=== PATIENT | male | born 1995 | race Caucasian/White ===

== ENCOUNTER → 2020-08-17 08:25 | Outpatient (BNVA) | payer BC, MEDICAID, SELFPAY | PROVIDERS: Family Provider Nurse Practitioner Family; Referring Provider Nurse Practitioner Family; Visit Provider Specialist | DX: F43.12 Post-traumatic stress disorder, chronic (principal); F33.2 Major depressive disorder, recurrent severe without psychotic features; F41.1 Generalized anxiety disorder; F17.200 Nicotine dependence, unspecified, uncomplicated; F12.20 Cannabis dependence, uncomplicated | CPT/HCPCS: 99204; 73140 ==

== ENCOUNTER → 2020-11-02 09:32 | Outpatient (BNVA) | payer BC, SELFPAY | PROVIDERS: Family Provider Nurse Practitioner Family; Visit Provider Nurse Practitioner Family | DX: R50.9 Fever, unspecified (principal); Z20.822 Contact with and (suspected) exposure to COVID-19 | CPT/HCPCS: 87635 ==

== ENCOUNTER 2021-01-19 12:33 | Outpatient (CLI) | payer BC, MEDICAID, SELFPAY ==
--- NOTE | 2021-01-19 13:30 | US_ITS ---
WS: [id number] ULTRASOUND ABDOMEN LIMITED CLINICAL INFORMATION: R10.9 - Unspecified abdominal pain COMPARISON: None. FINDINGS: Appendix is not visualized due to bowel gas. Bowel gas is seen within the right lower quadr ant. Gallbladder Normal. Gallstones: None. Gallbladder sludge: None. Gallbladder wall thickening: None. Pericholecystic fluid: None. Sonographic Cuellar sign: Absent. US/US appendix [id number] IMPRESSION: 1. Appendix not visualized in the right lower quadrant due to bowel gas. 2. Normal gallbladder.
== END 2021-01-19 12:34 | disposition home or self-care (01) ==
LOC: RAD 12:38
PROVIDERS: PCP Nurse Practitioner Family; Visit Provider Nurse Practitioner Family
DX: R10.9 Unspecified abdominal pain (principal)
CPT/HCPCS: 76705

== ENCOUNTER → 2021-01-22 16:34 | Outpatient (BNVA) | payer BC, MEDICAID, SELFPAY | PROVIDERS: PCP Nurse Practitioner Family; Visit Provider Nurse Practitioner Family | DX: R10.9 Unspecified abdominal pain (principal); K59.00 Constipation, unspecified | CPT/HCPCS: 81000 ==

== ENCOUNTER 2021-02-10 21:03 | Emergency (ER) | payer BC, MEDICAID, SELFPAY ==
[2021-02-10] VITALS (26 sets, daily range): BP systolic 103–133; BP diastolic 61–79; PULSE 64–71; RESP 16–18; TEMP 36.7; O2SAT 94–98; BMI 40.3
--- NOTE | 2021-02-10 21:47 | CTR_ITS ---
PROCEDURE INFORMATION: Exam: CT Abdomen And Pelvis With Contrast Exam date and time: 02/10/2021 9:47 PM Age: 25 years old Clinical indication: Abdominal pain; Localized; Right lower quadrant (rlq); Patient HX: C/O rlq abd pain TECHNIQUE: Imaging protocol: Computed tomography of the abdomen and pelvis with contrast. Radiation optimization: All CT scans at this facility use at least one of these dose optimization techniques: automated exposure control; mA and/or kV adjustment per patient size (includes targeted exams where dose is matched to clinical indication); or iterative reconstruction. Contrast material: OMNI 300; Contrast volume: 95 ml; Contrast route: INTRAVENOUS (IV); COMPARISON: [place] appendix [id number] 01/19/2021 1:01 PM RADIATION DOSE METRICS: Total DLP (mGy-cm): 1733.63 FINDINGS: Liver: Normal. No mass. Gallbladder and bile ducts: Normal. No calcified stones. No ductal dilation. Pancreas: Normal. No ductal dilation. Spleen: Calcifications are seen within the spleen compatible with calcified granulomas. Adrenal glands: Normal. No mass. Kidneys and ureters: Normal. No hydronephrosis. Stomach and bowel: Unremarkable. No obstruction. No mucosal thickening. Appendix: The appendix is visualized and is normal in configuration. Intraperitoneal space: Unremarkable. No free air. No significant fluid collection. Vasculature: Unremarkable. No abdominal aortic aneurysm. Lymph nodes: Unremarkable. No enlarged lymph nodes. Urinary bladder: Unremarkable as visualized. Reproductive: Unremarkable as visualized. Bones/joints: Unremarkable. No acute fracture. Soft tissues: Unremarkable. CT/CT abdomen pelvis w con* [id number] IMPRESSION: There are no acute abdominal findings. Radiation Dose CTDIVOL = (mGy): DLP = 1733.63 (mGy-cm)
--- NOTE | 2021-02-10 21:56 | W.ED.ABDPA2 ---
HPI - Abdominal Pain General: Chief Complaint: Abdominal Pain Stated Complaint: Sever ABD Pain Time Seen by Provider: 02/10/21 21:33 Source: patient Mode of arrival: ambulatory Limitations: no limitations History of Present Illness: HPI narrative: 25-year-old male states he been having right lower quadrant pain over the last 2 weeks has gotten much worse over the last 2 days. He states he was originally constipated but is taken medicines for that and is no longer constipated but his pain is worsened. He states he saw his provider he was concerned it was appendicitis was actually scheduled for a CT yesterday but did not show up. He has had some nausea and vomiting. Denies any fevers. Denies any worsening proving factors. States his pain is an 8 out of 10 currently. MD elicited complaint: abdominal pain Associated Symptoms: Reports GI cramping, nausea and vomiting; Denies chills, dysuria and fever(s) Review of Systems Const: Denies: fever(s), chills, body aches or change in appetite Eyes: Denies: blurry vision or eye discomfort ENMT: Denies: throat pain or dental pain Card: Denies: chest pain Resp: Denies: dyspnea GI: Reports: abdominal pain, nausea, vomiting and GI cramping : Denies: dysuria Musc: Denies: neck pain or back pain Skin/Breast: Denies: rash Neuro: Denies: headache(s) Psych: Denies: depression Dar/Lymph: Denies: easy bruising All/Imm: Denies: urticaria PFSH ED PFSH: Medical History Generalized anxiety disorder Major depressive disorder, recurrent severe without psychotic features Surgical History History of rotator cuff surgery History of tonsillectomy and adenoidectomy S/P excision of ganglion cyst Family History Mother Diabetes Grandfather Diabetes Social History Quit status (tobacco): has tried quititng Number of times tried to quit tobacco: 4 Second hand smoke exposure: Yes Alcohol intake: never Adopted: No Caregiver/support person: No Lives independently: No Household members: spouse and children Current occupational status: employed History of recent travel: No Sexually active: Yes Current gender identity: Male Physical Exam Const: COMMON NORMALS: no acute distress, patient oriented x3 and healthy appearing HENMT: COMMON NORMALS: normocephalic and atraumatic HEAD & SCALP: normocephalic and atraumatic Eye: COMMON NORMALS: Equal, round and reactive pupils present and EOMs intact bilaterally PUPIL: Yes Equal, round and reactive pupils present Neck/C-Spine: COMMON NORMALS: full ROM and supple Chest: COMMONS NORMALS: normal inspection of the chest and normal palpation of entire chest wall Resp: COMMON NORMALS: normal respiratory effort, No retractions, No use of accessory muscles and clear to auscultation bilaterally AUSCULTATION: clear to auscultation bilaterally Cardio: COMMON NORMALS: regular rate, regular rhythm and No murmurs present (Cardio) RATE: regular rate RHYTHM: regular rhythm GI: COMMON NORMALS: Normal to inspection, nondistended, normoactive bowel sounds present, Soft to palpation, non-tender and no masses PALPATION: Yes Soft to palpation and Yes Tenderness to palpation present (GI) Details: RLQ Extremity: COMMON NORMALS: normal to inspection and full ROM Neuro: COMMON NORMALS: patient oriented x3, moves all extremities and no focal motor deficits Psych: COMMON NORMALS: mental status grossly normal, Normal thought process present and cooperative THOUGHT PROCESS: Normal thought process present Skin: COMMON NORMALS: no rashes or lesions noted and no wounds GENERAL SKIN EXAM: no rashes or lesions noted Course Vital Signs: Vital signs: Vital Signs Temperature 98.1 F 02/10/21 21:14 Pulse Rate 64 02/10/21 22:16 Respiratory Rate 16 02/10/21 22:16 Blood Pressure 107/66 02/11/21 00:05 Pulse Oximetry 95 02/11/21 00:05 MDM - Abdominal Pain MDM Narrative: Medical decision making narrative: Patient presents here with abdominal pain. Patient's blood work and CT abdomen here are both negative. We will treat him with pain meds and get him follow-up with surgery. He is return if worsening. He understands agrees to plan. Lab Data: Labs: Lab Results 02/10/21 02/10/21 02/10/21 22:00 22:00 22:00 WBC 11.6 10^3/uL H 10 ^3/uL (4.0-10.0) RBC 5.25 10^6/uL 10^6 /uL (4.1-5.3) Hgb 16.7 g/dL H g/dL (11.7-16.6) Hct 47.5 % % (42.0-52.0) MCV 90.5 fl fl (80-94) MCH 31.8 pg pg (28.0-34.0) MCHC 35.2 g/dL g/dL (30.0-36.0) RDW 12.6 % % (12.1-15.1) Plt Count 202 10^3/cmm 10^3 /cmm (130-400) MPV 12.1 fL H fL (7.4-10.4) Neut % (Auto) 60.7 % % Lymph % (Auto) 26.0 % % Runnels % (Auto) 8.0 % % Eos % (Auto) 4.6 % % Baso % (Auto) 0.4 % % Neut # (Auto) 7.03 10^3/uL 10^3 /uL (1.8-7.7) Lymph # (Auto) 3.0 10^3/uL 10^3/ uL (0.8-4.8) Runnels # (Auto) 0.9 10^3/uL 10^3/ uL (0.2-0.9) Eos # (Auto) 0.5 10^3/uL 10^3/ uL (0.0-0.8) Baso # (Auto) 0.1 10^3/uL 10^3/ uL (0.0-0.1) Nucleated RBC % (a uto) 0 % % Nucleated RBCs # 0.0 /100WBC /100W BC Sodium 140 mmol/L mmol/L (136-145) Potassium 4.3 mmol/L mmol/L (3.5-5.1) Chloride 105 mmol/L mmol/L (98-107) Carbon Dioxide 24 mmol/L mmol/L (22-29) Anion Gap 15.3 (5-19) BUN 11 mg/dL mg/dL (6-20) Creatinine 0.8 mg/dL mg/dL (0.7-1.2) GFR Calculation 116.9 mL/min mL/m in (90-130) Glucose 96 mg/dL mg/dL (65-115) Calculated Osmolal ity 289 mOsm/kg mOsm/ kg (285-295) Calcium 9.8 mg/dL mg/dL (8.5-10.5) Total Bilirubin 0.5 mg/dL mg/dL (0.15-1.2) AST 16 U/L U/L (0-40) ALT 17 U/L U/L (0-41) Alkaline Phosphata se 76 IU/L IU/L (40-130) Total Protein 7.3 g/dL g/dL (6.6-8.7) Albumin 4.7 g/dL g/dL (3.5-5.2) Globulin 2.6 g/dL g/dL (1.3-4.6) Lipase 33 U/L U/L (13-60) Urine Color Yellow (Yellow) Urine Appearance Clear (CLEAR) Urine pH 7 (5-7) Ur Specific Gravit y 1.015 (1.005-1.030) Urine Protein Neg (Negative) Urine Glucose (UA) Norm (Normal) Urine Ketones Negative (Negative) Urine Blood Neg (Negative) Urine Nitrate Negative (Negative) Urine Bilirubin Neg (Negative) Urine Urobilinogen 4 mg/dL H mg/dL (Negative) Ur Leukocyte Nehal ase Negative (Negative) Imaging Data ^: CT Abd/Pel: Attestation: I personally reviewed and interpreted this imaging study as follows: Radiologist's impression: [address] [address] [address] Scan Report Signed Patient: Sean Anderson Unit #: [id number] : 1995 Age/Sex: 25 / M ADM Date: 02/10/21 Loc: ER Room/Bed: Attending Dr: Ordering Provider/Ordering MD: Shira Herndon MD Date of Service: 02/10/21 Procedure(s): CT abdomen pelvis w con* [id number] Accession Number(s): [id number] Report Number: [id number] PROCEDURE INFORMATION: Exam: CT Abdomen And Pelvis With Contrast Exam date and time: 02/10/2021 9:47 PM Age: 25 years old Clinical indication: Abdominal pain; Localized; Right lower quadrant (rlq); Patient HX: C/O rlq abd pain TECHNIQUE: Imaging protocol: Computed tomography of the abdomen and pelvis with contrast. Radiation optimization: All CT scans at this facility use at least one of these dose optimization techniques: automated exposure control; mA and/or kV adjustment per patient size (includes targeted exams where dose is matched to clinical indication); or iterative reconstruction. Contrast material: OMNI 300; Contrast volume: 95 ml; Contrast route: INTRAVENOUS (IV); COMPARISON: [place] appendix [id number] 01/19/2021 1:01 PM RADIATION DOSE METRICS: Total DLP (mGy-cm): 1733.63 FINDINGS: Liver: Normal. No mass. Gallbladder and bile ducts: Normal. No calcified stones. No ductal dilation. Pancreas: Normal. No ductal dilation. Spleen: Calcifications are seen within the spleen compatible with calcified granulomas. Adrenal glands: Normal. No mass. Kidneys and ureters: Normal. No hydronephrosis. Stomach and bowel: Unremarkable. No obstruction. No mucosal thickening. Appendix: The appendix is visualized and is normal in configuration. Intraperitoneal space: Unremarkable. No free air. No significant fluid collection. Vasculature: Unremarkable. No abdominal aortic aneurysm. Lymph nodes: Unremarkable. No enlarged lymph nodes. Urinary bladder: Unremarkable as visualized. Reproductive: Unremarkable as visualized. Bones/joints: Unremarkable. No acute fracture. Soft tissues: Unremarkable. CT/CT abdomen pelvis w con* [id number] IMPRESSION: There are no acute abdominal findings. Radiation Dose CTDIVOL = (mGy): DLP = 1733.63 (mGy-cm) Dictated By: Yang Moore MD Signed By: Yang Moore MD Signed Date/Time: 02/11/21 0006 DD/ 46 Discharge Plan Discharge Patient Disposition: Home Clinical Impression: RLQ abdominal pain Condition: Stable Prescriptions: New dicyclomine 20 mg tablet 20 mg PO TID PRN (Reason: pain) Qty: 20 RF: 0 ondansetron 4 mg tablet,disintegrating 4 mg PO Q6H PRN (Reason: nausea and vomiting) Qty: 14 RF: 0 No Action fluoxetine [Prozac] 20 mg capsule 20 mg PO DAILY Qty: 30 RF: 1 prazosin 5 mg capsule 5 mg PO .HS Qty: 30 RF: 1 ProAir RespiClick 90 mcg/actuation aerosol powdr breath activated 2 inh inhalation Q6H PRN (Reason: shortness of breath or wheezing) Qty: 1 RF: 0 ibuprofen 800 mg tablet 800 mg PO Q8H 10 Days Qty: 30 RF: 0 Discharge Orders: Discharge ED (Routine); Ordered 02/11/21 Ordered By: Shira Herndon Referrals: Pat Ramirez FNP [Primary Care Provider] - Jamie Evangelista MD [Physician] - 1-3 days Discharge Diet: Advance as tolerated Discharge Activity: Resume usual activity Patient Instructions: Abdominal Pain (ED) Coding Level of Care Code ED Platen Press Feeder for Chg Fwd Exam Comprehensive
[2021-02-10] MEDS: ondansetron 2 mg/ML SDV 2 mL 4 MG IVP (22:08)
[2021-02-10] MEDS: morphine 4 mg/mL SDV 1 mL IVP (22:08)
[2021-02-10] MEDS: sodium chloride 0.9% 1,000 ML 999 ML IV (22:08)
[2021-02-10 22:13] LABS: Basophils # 0.1 10^3/uL (0.0-0.1); Basophils % 0.4 %; Eosinophils # 0.5 10^3/uL (0.0-0.8); Eosinophils % 4.6 %; Hematocrit 47.5 % (42.0-52.0); Hemoglobin 16.7 g/dL (11.7-16.6); Mean Corpuscular HGB Conc 35.2 g/dL (30.0-36.0); Mean Corpuscular Hemoglobin 31.8 pg (28.0-34.0); Mean Corpuscular Volume 90.5 fl (80-94); Mean Platelet Volume 12.1 fL (7.4-10.4); Monocytes # 0.9 10^3/uL (0.2-0.9); Neutrophils # 7.03 10^3/uL (1.8-7.7); Neutrophils % 60.7 %; Nucleated Red Blood Cells % 0 %; Platelet Count 202 10^3/cmm (130-400); Red Blood Count 5.25 10^6/uL (4.1-5.3); Red Cell Distribution Width 12.6 % (12.1-15.1); White Blood Count 11.6 10^3/uL (4.0-10.0)
[2021-02-10 22:16] LABS: Add Urine Microscopic? NO; Charge for UA Resulting for Rev
[2021-02-10 22:24] LABS: Bilirubin Urine Neg (Negative); Blood Urine Neg (Negative); Glucose Urine UA Norm (Normal); Ketones Urine Negative (Negative); Leukocyte Esterase Urine Negative (Negative); Nitrate Urine Negative (Negative); Protein Urine Neg (Negative); Specific Gravity, Urine 1.015 (1.005-1.030); Urine Appearance Clear (CLEAR); Urine Color Yellow (Yellow); Urobilinogen Urine 4 mg/dL (Negative); pH Urine 7 (5-7)
[2021-02-10 22:40] LABS: Alanine Aminotransferase 17 U/L (0-41); Albumin Level 4.7 g/dL (3.5-5.2); Alkaline Phosphatase 76 IU/L (40-130); Anion Gap 15.3 (5-19); Aspartate Amino Transferase 16 U/L (0-40); Blood Urea Nitrogen 11 mg/dL (6-20); Calcium 9.8 mg/dL (8.5-10.5); Carbon Dioxide 24 mmol/L (22-29); Chloride 105 mmol/L (98-107); Globulin 2.6 g/dL (1.3-4.6); Glomerular Filtration Rate 116.9 mL/min (90-130); Glucose 96 mg/dL (65-115); Lipase 33 U/L (13-60); Osmolality Calculated 289 mOsm/kg (285-295); Potassium 4.3 mmol/L (3.5-5.1); Sodium 140 mmol/L (136-145); Total Bilirubin 0.5 mg/dL (0.15-1.2); Total Protein 7.3 g/dL (6.6-8.7)
[2021-02-10] MEDS: iohexol 300 mg/mL 100 mL Btl IV (22:59)
[2021-02-11] VITALS: BP 103/63; O2SAT 95
[2021-02-11 00:05] VITALS: BP 107/66; O2SAT 95
--- NOTE | 2021-02-12 15:22 | DCPLANNER ---
senior mechanical project manager had message to schedule a follow up appointment for patient with general surgery. senior mechanical project manager emailed patients information to Alison Ha and Daniela at [facility] General Surgery / ENT clinic. Patients information will be printed and reviewed. Clinic will call patient with appointment information.
--- NOTE | 2021-03-08 10:39 | DCPLANNER ---
Patient had a follow up appointment scheduled for 02.20.[address] Evangelista at general surgery - patient did attend appointment.
== END 2021-02-11 00:30 | disposition home or self-care (01) ==
PROVIDERS: Emergency Provider Emergency Medicine; PCP Nurse Practitioner Family
DX: R10.31 Right lower quadrant pain (principal); Z77.22 Contact with and (suspected) exposure to environmental tobacco smoke (acute) (chronic)
CPT/HCPCS: 74177; 80053; 81003; 83690; 85025; 96361; 96374; 96375; 99284; J2270; J2405; J7030; Q9967

== ENCOUNTER → 2021-02-28 15:24 | Outpatient (BNVA) | payer BC, MEDICAID, SELFPAY | PROVIDERS: PCP Nurse Practitioner Family; Visit Provider Psychiatry & Neurology Psychiatry | DX: F41.1 Generalized anxiety disorder (principal); F33.2 Major depressive disorder, recurrent severe without psychotic features | CPT/HCPCS: 99214 ==

== ENCOUNTER → 2021-03-19 13:46 | Outpatient (BNVA) | payer BC, SELFPAY | PROVIDERS: PCP Nurse Practitioner Family; Visit Provider Social Worker | DX: F43.12 Post-traumatic stress disorder, chronic (principal); F33.2 Major depressive disorder, recurrent severe without psychotic features | CPT/HCPCS: 90834 ==

== ENCOUNTER → 2021-04-12 07:41 | Outpatient (BNVA) | payer BC, SELFPAY | PROVIDERS: PCP Nurse Practitioner Family; Visit Provider Psychiatry & Neurology Psychiatry | DX: F41.1 Generalized anxiety disorder (principal); F33.2 Major depressive disorder, recurrent severe without psychotic features; F17.200 Nicotine dependence, unspecified, uncomplicated; F43.12 Post-traumatic stress disorder, chronic; F12.20 Cannabis dependence, uncomplicated | CPT/HCPCS: 99213 ==

== ENCOUNTER → 2021-05-10 09:09 | Outpatient (BNVA) | payer BC, SELFPAY | PROVIDERS: PCP Nurse Practitioner Family; Visit Provider Nurse Practitioner Family | DX: Z20.822 Contact with and (suspected) exposure to COVID-19 (principal); R05.9 Cough, unspecified | CPT/HCPCS: 87486; 87581; 87633 ==

== ENCOUNTER → 2021-05-24 11:23 | Outpatient (BNVA) | payer BC, SELFPAY | PROVIDERS: PCP Nurse Practitioner Family; Visit Provider Nurse Practitioner Family | DX: Z20.822 Contact with and (suspected) exposure to COVID-19 (principal); R50.9 Fever, unspecified | CPT/HCPCS: 87635 ==

== ENCOUNTER → 2021-07-05 07:36 | Outpatient (BNVA) | payer BC, SELFPAY | PROVIDERS: PCP Nurse Practitioner Family; Visit Provider Psychiatry & Neurology Psychiatry | DX: F41.1 Generalized anxiety disorder (principal); F33.2 Major depressive disorder, recurrent severe without psychotic features; F12.20 Cannabis dependence, uncomplicated; F43.12 Post-traumatic stress disorder, chronic; F17.200 Nicotine dependence, unspecified, uncomplicated | CPT/HCPCS: 99213 ==

== ENCOUNTER 2021-07-16 15:41 | Emergency (ER) | payer BC, MEDICAID, SELFPAY ==
[2021-07-16 15:46] VITALS: BP 148/95; PULSE 61; RESP 16; TEMP 36.6; O2SAT 98; BMI 40.3
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
[2021-07-16 17:00] VITALS: RESP 16
[2021-07-16] MEDS: morphine 4 mg/mL SDV 1 mL IVP (17:00)
[2021-07-16] MEDS: ondansetron 2 mg/ML SDV 2 mL 4 MG IVP (17:00)
[2021-07-16 17:30] LABS: Blood Urea Nitrogen 7 mg/dL (6-20); Calcium 9.7 mg/dL (8.5-10.5); Carbon Dioxide 25 mmol/L (22-29); Chloride 103 mmol/L (98-107); Glomerular Filtration Rate 135.3 mL/min (90-130); Glucose 78 mg/dL (65-115); Osmolality Calculated 285 mOsm/kg (285-295); Sodium 139 mmol/L (136-145)
[2021-07-16 17:36] LABS: Basophils % 0.6 %; Eosinophils # 0.3 10^3/uL (0.0-0.8); Eosinophils % 4.6 %; Hematocrit 43.6 % (42.0-52.0); Hemoglobin 15.5 g/dL (11.7-16.6); Lymphocytes # 3.2 10^3/uL (0.8-4.8); Lymphocytes % 46.9 %; Mean Corpuscular HGB Conc 35.6 g/dL (30.0-36.0); Mean Corpuscular Hemoglobin 31.6 pg (28.0-34.0); Mean Platelet Volume 11.6 fL (7.4-10.4); Monocytes # 0.8 10^3/uL (0.2-0.9); Monocytes % 11.5 %; Neutrophils # 2.49 10^3/uL (1.8-7.7); Neutrophils % 36.1 %; Nucleated Red Blood Cells % 0 %; Platelet Count 160 10^3/cmm (130-400); Red Cell Distribution Width 12.7 % (12.1-15.1); White Blood Count 6.9 10^3/uL (4.0-10.0)
[2021-07-16 17:41] LABS: Anion Gap 15.2 (5-19); Potassium 4.2 mmol/L (3.5-5.1)
[2021-07-16 18:35] VITALS: BP 152/95; PULSE 67; RESP 16; O2SAT 96
== END 2021-07-16 18:36 | disposition home or self-care (01) ==
PROVIDERS: Family Medicine; Emergency Provider Emergency Medicine; PCP Nurse Practitioner Family
DX: I86.1 Scrotal varices (principal); Z77.22 Contact with and (suspected) exposure to environmental tobacco smoke (acute) (chronic)
CPT/HCPCS: 36415; 76870; 80048; 85025; 96374; 96375; 99283; J2270; J2405

== ENCOUNTER 2021-08-30 09:08 | Emergency (ER) | payer BC, MEDICAID, SELFPAY ==
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
[2021-08-30 09:43] VITALS: BP 129/80; PULSE 69; RESP 18; TEMP 36.6; O2SAT 97; BMI 41.9
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
[2021-08-30 10:33] LABS: Basophils % 0.4 %; Eosinophils # 0.1 10^3/uL (0.0-0.8); Eosinophils % 1.1 %; Hematocrit 46.1 % (42.0-52.0); Hemoglobin 15.7 g/dL (11.7-16.6); Lymphocytes # 1.8 10^3/uL (0.8-4.8); Lymphocytes % 17.3 %; Mean Corpuscular HGB Conc 34.1 g/dL (30.0-36.0); Mean Corpuscular Hemoglobin 30.6 pg (28.0-34.0); Mean Corpuscular Volume 89.9 fl (80-94); Mean Platelet Volume 11.2 fL (7.4-10.4); Monocytes # 0.7 10^3/uL (0.2-0.9); Monocytes % 6.8 %; Neutrophils # 7.83 10^3/uL (1.8-7.7); Neutrophils % 73.9 %; Nucleated Red Blood Cells % 0 %; Platelet Count 234 10^3/cmm (130-400); Red Blood Count 5.13 10^6/uL (4.1-5.3); Red Cell Distribution Width 12.9 % (12.1-15.1); White Blood Count 10.6 10^3/uL (4.0-10.0)
[2021-08-30 10:43] LABS: Alanine Aminotransferase 42 U/L (0-41); Albumin Level 4.5 g/dL (3.5-5.2); Alkaline Phosphatase 81 IU/L (40-130); Anion Gap 14.9 (5-19); Aspartate Amino Transferase 26 U/L (0-40); Blood Urea Nitrogen 9 mg/dL (6-20); Calcium 9.8 mg/dL (8.5-10.5); Carbon Dioxide 24 mmol/L (22-29); Chloride 104 mmol/L (98-107); Creatinine Clr Calc Pharmacy 167.6433; Globulin 2.4 g/dL (1.3-4.6); Glucose 121 mg/dL (65-115); Osmolality Calculated 288 mOsm/kg (285-295); Potassium 3.9 mmol/L (3.5-5.1); Sodium 139 mmol/L (136-145); Total Bilirubin 0.3 mg/dL (0.15-1.2); Total Protein 6.9 g/dL (6.6-8.7)
[2021-08-30 11:42] LABS: Add Urine Microscopic? NO; Charge for UA Resulting for Rev
[2021-08-30] MEDS: tetanus-dipt-pertussis 0.5 mL SDV IM (11:49)
[2021-08-30 11:50] LABS: Urine Appearance Clear (CLEAR); Urine Color Yellow (Yellow)
[2021-08-30 11:51] LABS: Bilirubin Urine Neg (Negative); Blood Urine Neg (Negative); Glucose Urine UA Norm (Normal); Ketones Urine Negative (Negative); Leukocyte Esterase Urine Negative (Negative); Nitrate Urine Negative (Negative); Protein Urine Neg (Negative); Specific Gravity, Urine 1.005 (1.005-1.030); Urobilinogen Urine Neg (Negative); pH Urine 7 (5-7)
[2021-08-30 12:02] VITALS: BP 163/104; PULSE 70; RESP 18; O2SAT 97
== END 2021-08-30 12:02 | disposition home or self-care (01) ==
PROVIDERS: Emergency Provider Family Medicine; PCP Nurse Practitioner Family
DX: S80.811A Abrasion, right lower leg, initial encounter (principal); V89.2XXA Person injured in unspecified motor-vehicle accident, traffic, initial encounter; M54.2 Cervicalgia
CPT/HCPCS: 70450; 72040; 73590; 80053; 81003; 85025; 90471; 90715; 99284

== ENCOUNTER 2022-02-18 15:44 | Emergency (ER) | payer BC, MEDICAID, SELFPAY ==
[2022-02-18 17:18] VITALS: BMI 41.9
[2022-02-18 17:21] VITALS: BP 143/93; PULSE 79; RESP 18; TEMP 36.6; O2SAT 98
[2022-02-18 18:52] LABS: Basophils % 0.4 %; Eosinophils # 0.4 10^3/uL (0.0-0.8); Eosinophils % 3.7 %; Hemoglobin 17.6 g/dL (11.7-16.6); Lymphocytes # 3.8 10^3/uL (0.8-4.8); Lymphocytes % 40.5 %; Mean Corpuscular HGB Conc 34.5 g/dL (30.0-36.0); Mean Corpuscular Hemoglobin 30.9 pg (28.0-34.0); Mean Corpuscular Volume 89.5 fl (80-94); Mean Platelet Volume 11.6 fL (7.4-10.4); Monocytes # 0.8 10^3/uL (0.2-0.9); Neutrophils # 4.43 10^3/uL (1.8-7.7); Neutrophils % 47.2 %; Nucleated Red Blood Cells % 0 %; Platelet Count 186 10^3/cmm (130-400); Red Cell Distribution Width 12.7 % (12.1-15.1); White Blood Count 9.4 10^3/uL (4.0-10.0)
[2022-02-18 19:17] LABS: Alanine Aminotransferase 26 U/L (0-41); Albumin Level 4.1 g/dL (3.5-5.2); Alkaline Phosphatase 73 U/L (40-130); Anion Gap 16.1 (5-19); Aspartate Amino Transferase 24 U/L (0-40); Blood Urea Nitrogen 10 mg/dL (6-20); Calcium 9.7 mg/dL (8.5-10.5); Carbon Dioxide 19 mmol/L (22-29); Chloride 99 mmol/L (98-107); Creatinine Clr Calc Pharmacy 167.6433; Globulin 3.3 g/dL (1.3-4.6); Glucose 82 mg/dL (65-115); Lipase 24 U/L (13-60); Osmolality Calculated 268 mOsm/kg (285-295); Potassium 4.1 mmol/L (3.5-5.1); Sodium 130 mmol/L (136-145); Total Bilirubin 0.3 mg/dL (0.15-1.2); Total Protein 7.4 g/dL (6.6-8.7)
--- NOTE | 2022-02-18 19:17 | XRR_ITS ---
PROCEDURE INFORMATION: Exam: XR Abdomen Exam date and time: 02/18/2022 7:24 PM Age: 26 years old Clinical indication: Abdominal pain; Additional info: Abd pain TECHNIQUE: Imaging protocol: Radiologic exam of the abdomen. Views: Frontal supine view of the abdomen. 1 View. COMPARISON: CT abdomen pelvis w con* [id number] 02/10/2021 10:57 PM FINDINGS: Gastrointestinal tract: Normal. No bowel dilation. Bones/joints: Unremarkable. XR/XR KUB [id number] IMPRESSION: No acute findings.
--- NOTE | 2022-02-18 19:17 | ED_ITS ---
HPI - Abdominal Pain General: Chief Complaint: Abdominal Pain Stated Complaint: Possible hernia Time Seen by Provider: 02/18/22 19:17 History of Present Illness: 26-year-old male patient comes in today with complaints of epigastric pain. Patient has been seen by primary care and светлана faulkner with a hiatal hernia and was written a prescription for esomeprazole but has yet to start the medication. Patient comes in tonight due to increased discomfort in the epigastric region along with dyspepsia. Patient appears nontoxic. Patient appears in mild to moderate pain. Associated Symptoms: Denies fever(s) Review of Systems Const: Denies: fever(s) Card: Denies: chest pain Resp: Denies: dyspnea GI: Reports: abdominal pain PFSH ED PFSH: Medical History Generalized anxiety disorder Major depressive disorder, recurrent severe without psychotic features Psychiatric care Surgical History History of rotator cuff surgery History of tonsillectomy and adenoidectomy S/P excision of ganglion cyst Family History Mother Diabetes Grandfather Diabetes Social History Smoking and tobacco status: current every day smoker cigarettes Packs smoked per day: 1 Years cigarettes smoked: 8 Quit status (tobacco): has tried quititng Number of times tried to quit tobacco: 4 Second hand smoke exposure: Yes Alcohol intake: never Adopted: No Caregiver/support person: No Lives independently: No Household members: spouse and children Current occupational status: employed History of recent travel: No Sexually active: Yes Current gender identity: Male Physical Exam Const: COMMON NORMALS: alert HENMT: COMMON NORMALS: normocephalic HEAD & SCALP: normocephalic Neck/C-Spine: COMMON NORMALS: full ROM Resp: COMMON NORMALS: normal respiratory effort and clear to auscultation bilaterally AUSCULTATION: clear to auscultation bilaterally Cardio: COMMON NORMALS: regular rate and regular rhythm RATE: regular rate RHYTHM: regular rhythm GI: COMMON NORMALS: Soft to palpation INSPECTION: Yes normal to inspection and Yes other (No abdominal hernia noted) AUSCULTATION: Yes normoactive bowel sounds PALPATION: Yes Soft to palpation and Yes Tenderness to palpation present (GI) (Midepigastric) : COMMON NORMALS: Yes no CVA tenderness BLADDER/KIDNEY EXAM: Yes no CVA tenderness Back/Pelvis: COMMON NORMALS: no CVA tenderness Neuro: SENSORIUM/ORIENTATION: Yes alert Skin: COMMON NORMALS: turgor normal GENERAL SKIN EXAM: turgor normal Course Vital Signs: Vital signs: Vital Signs Temperature 97.8 F 02/18/22 17:21 Pulse Rate 79 02/18/22 17:21 Respiratory Rate 18 02/18/22 17:21 Blood Pressure 143/93 02/18/22 17:21 Pulse Oximetry 98 02/18/22 17:21 Oxygen Delivery Me thod 02/18/22 17:21 MDM - Abdominal Pain Medical Decision Making 26-year-old male patient comes in today with complaints of epigastric discomfort and nausea. Patient has a history of gastroesophageal reflux disorder and prob able hiatal hernia. On exam lungs were clear to auscultation. Patient had some tenderness in the upper mid epigastrium. Bowel sounds are present. Skin was warm and dry. Differential diagnosis includes but not limited to gallbladder disease, GERD, hiatal hernia, bowel obstruction. KUB noted no abnormalities or signs of bowel obstruction. CBC and CMP were unremarkable. Lipase was unremarkable. Believe patient most probably has an exacerbation of his GERD he was given a dose of GI cocktail with some improvement. And 1 hydrocodone tablet for pain. Patient should continue with his routine medications and care. I added Reglan 1 tablet before meals and at bedtime for improved relief of reflux. Patient reported understanding and agreed to plan. Lab Data : 02/18/22 18:45 02/18/22 18:45 Labs/Radiology: Laboratory Results WBC 9.4 10^3/uL (4.0-10.0) 02/18/22 18:45 RBC 5.70 10^6/uL (4.1-5.3) H 02/18/22 18:45 Hgb 17.6 g/dL (11.7-16.6) H 02/18/22 18:45 Hct 51.0 % (42.0-52.0) 02/18/22 18:45 MCV 89.5 fl (80-94) 02/18/22 18:45 MCH 30.9 pg (28.0-34.0) 02/18/22 18:45 MCHC 34.5 g/dL (30.0-36.0) 02/18/22 18:45 RDW 12.7 % (12.1-15.1) 02/18/22 18:45 Plt Count 186 10^3/cmm (130-400) 02/18/22 18:45 MPV 11.6 fL (7.4-10.4) H 02/18/22 18:45 Neut % (Auto) 47.2 % 02/18/22 18:45 Lymph % (Auto) 40.5 % 02/18/22 18:45 [place] % (Auto) 8.0 % 02/18/22 18:45 Eos % (Auto) 3.7 % 02/18/22 18:45 Baso % (Auto) 0.4 % 02/18/22 18:45 Neut # (Auto) 4.43 10^3/uL (1.8-7.7) 02/18/22 18:45 Lymph # (Auto) 3.8 10^3/uL (0.8-4.8) 02/18/22 18:45 [place] # (Auto) 0.8 10^3/uL (0.2-0.9) 02/18/22 18:45 Eos # (Auto) 0.4 10^3/uL (0.0-0.8) 02/18/22 18:45 Baso # (Auto) 0.0 10^3/uL (0.0-0.1) 02/18/22 18:45 Nucleated RBC % (auto) 0 % 02/18/22 18:45 Nucleated RBCs # 0.0 /100WBC 02/18/22 18:45 Sodium 130 mmol/L (136-145) L 02/18/22 18:45 Potassium 4.1 mmol/L (3.5-5.1) 02/18/22 18:45 Chloride 99 mmol/L (98-107) 02/18/22 18:45 Carbon Dioxide 19 mmol/L (22-29) L 02/18/22 18:45 Anion Gap 16.1 (5-19) 02/18/22 18:45 BUN 10 mg/dL (6-20) 02/18/22 18:45 Creatinine 0.8 mg/dL (0.7-1.2) 02/18/22 18:45 GFR Calculation 116.0 mL/min (90-130) 02/18/22 18:45 Glucose 82 mg/dL (65-115) 02/18/22 18:45 Calculated Osmolality 268 mOsm/kg (285-295) L 02/18/22 18:45 Calcium 9.7 mg/dL (8.5-10.5) 02/18/22 18:45 Total Bilirubin 0.3 mg/dL (0.15-1.2) 02/18/22 18:45 AST 24 U/L (0-40) 02/18/22 18:45 ALT 26 U/L (0-41) 02/18/22 18:45 Alkaline Phosphatase 73 U/L (40-130) 02/18/22 18:45 Total Protein 7.4 g/dL (6.6-8.7) 02/18/22 18:45 Albumin 4.1 g/dL (3.5-5.2) 02/18/22 18:45 Globulin 3.3 g/dL (1.3-4.6) 02/18/22 18:45 Lipase 24 U/L (13-60) 02/18/22 18:45 Discharge Plan Discharge Patient Disposition: Home Clinical Impression: Hernia, hiatal Abdominal pain Qualifiers: Abdominal location: epigastric Qualified Code(s): R10.13 - Epigastric pain Condition: Stable Prescriptions: New Reglan 10 mg tablet 10 mg PO Q6H 7 Days Qty: 28 0RF hydrocodone-acetaminophen 5-325 mg tablet 1 tab PO Q8H PRN (Reason: pain (scale score 7-10)) Qty: 6 0RF No Action fluticasone propionate [Flovent HFA] 110 mcg/actuation HFA aerosol inhaler 2 puff inhalation BID Qty: 12 3RF esomeprazole magnesium [Nexium] 40 mg capsule,delayed release(DR/EC) 40 mg PO DAILY Qty: 30 2RF albuterol sulfate [ProAir HFA] 90 mcg/actuation HFA aerosol inhaler See Rx Instructions .ROUTE .COMPLEX Qty: 8.5 0RF Dose Instruction: INHALE 2 PUFFS BY MOUTH EVERY 6 HOURS NEEDED FOR SHORTNESS OF BREATH OR WHEEZING Rx Instructions: INHALE 2 PUFFS BY MOUTH EVERY 6 HOURS NEEDED FOR SHORTNESS OF BREATH OR WHEEZING Discharge Orders: Discharge ED (Routine); Ordered 02/18/22 Ordered By: Huy Del Toro Referrals: Campos Mcmullen FNP [Primary Care Provider] - Patient Instructions: Abdominal Pain (ED), Opioid Safety Activity Restrictions/Additional Instructions: Try taking Reglan, metoclopramide, 10 mg 30 minutes prior to each meal and 1 time at bedtime to see if it would improve your symptoms of abdominal pain. Use hydrocodone for severe pain. Follow-up with primary care regarding further juan m luation and treatment. Continue with plan for follow-up with GI or surgical services assistant. Stand Alone Forms: Work/School Release Coding Level of Care Code ED Catering Coordinator for Manish Hayden
[2022-02-18] MEDS: HYDROcodone-acetaminophen 5-325 mg Tablet 1 TAB PO (19:44)
[2022-02-18] MEDS: lidocaine 2% viscous 15 ML, aluminum-mag hydrox-simethicon 30 ML, sucralfate oral liq 1 GM PO (19:46)
== END 2022-02-18 20:07 | disposition home or self-care (01) ==
PROVIDERS: Emergency Medicine; Emergency Provider Nurse Practitioner Family; PCP Nurse Practitioner Family
DX: K44.9 Diaphragmatic hernia without obstruction or gangrene (principal); R10.13 Epigastric pain
CPT/HCPCS: 36415; 74018; 80053; 83690; 85025; 99284

== ENCOUNTER 2022-02-21 17:08 | Emergency (ER) | payer BC, MEDICAID, SELFPAY ==
[2022-02-21 17:11] VITALS: BP 148/93; PULSE 88; RESP 18; TEMP 36.5; O2SAT 98; BMI 43.5
[2022-02-21 17:37] LABS: Basophils % 0.5 %; Eosinophils # 0.2 10^3/uL (0.0-0.8); Eosinophils % 2.7 %; Hematocrit 46.4 % (42.0-52.0); Hemoglobin 16.7 g/dL (11.7-16.6); Lymphocytes # 3.1 10^3/uL (0.8-4.8); Lymphocytes % 38.2 %; Mean Corpuscular Volume 86.2 fl (80-94); Mean Platelet Volume 11.7 fL (7.4-10.4); Monocytes # 0.7 10^3/uL (0.2-0.9); Monocytes % 7.9 %; Neutrophils # 4.13 10^3/uL (1.8-7.7); Neutrophils % 50.3 %; Nucleated Red Blood Cells % 0 %; Platelet Count 213 10^3/cmm (130-400); Red Blood Count 5.38 10^6/uL (4.1-5.3); Red Cell Distribution Width 12.7 % (12.1-15.1); White Blood Count 8.2 10^3/uL (4.0-10.0)
[2022-02-21 17:42] LABS: Add Urine Microscopic? NO; Charge for UA Resulting for Rev
[2022-02-21 18:02] LABS: Alanine Aminotransferase 41 U/L (0-41); Albumin Level 4.3 g/dL (3.5-5.2); Alkaline Phosphatase 78 U/L (40-130); Anion Gap 15.9 (5-19); Aspartate Amino Transferase 24 U/L (0-40); Blood Urea Nitrogen 14 mg/dL (6-20); Calcium 9.6 mg/dL (8.5-10.5); Carbon Dioxide 21 mmol/L (22-29); Chloride 104 mmol/L (98-107); Creatinine Clr Calc Pharmacy 152.1803; Globulin 3.1 g/dL (1.3-4.6); Glomerular Filtration Rate 101.2 mL/min (90-130); Glucose 128 mg/dL (65-115); Osmolality Calculated 286 mOsm/kg (285-295); Potassium 3.9 mmol/L (3.5-5.1); Sodium 137 mmol/L (136-145); Total Bilirubin 0.2 mg/dL (0.15-1.2); Total Protein 7.4 g/dL (6.6-8.7)
[2022-02-21 18:10] LABS: Bilirubin Urine Neg (Negative); Blood Urine Neg (Negative); Glucose Urine UA Norm (Normal); Ketones Urine Negative (Negative); Leukocyte Esterase Urine Negative (Negative); Nitrate Urine Negative (Negative); Protein Urine Neg (Negative); Urine Appearance Clear (CLEAR); Urine Color Yellow (Yellow); Urobilinogen Urine Neg (Negative); pH Urine 7 (5-7)
--- NOTE | 2022-02-21 20:53 | W.ED.ABDPA2 ---
HPI - Abdominal Pain General: Chief Complaint: Abdominal Pain Stated Complaint: abd pain Time Seen by Provider: 02/21/22 20:53 History of Present Illness: Mr. Brito is a 26-year-old gentleman with history of nicotine dependence, generalized anxiety, suspected hiatal hernia presenting to the emergency department due to abdominal pain. He reports onset of symptoms greater than 1 week ago without known specific provoking factor. Since that time he said significant upper left and right as well as epigastric abdominal pain which is aching and gnawing in nature. He was previously seen and trialed on medications for exacerbation of GERD however symptoms continued. Now reports some dark oily stools. Has had nonbloody emesis. Intensity symptoms is moderate to severe. Worse with palpation and movement. No other specific changes in health, exacerbating, or alleviating factors identified. Onset (ago): week(s) Location: Epigastric, LUQ and RUQ Severity: moderate Quality: aching and other Exacerbating factors: eating and vomiting Associated Symptoms: Reports nausea and vomiting Review of Systems General: Reports: 10 or more systems reviewed and unremarkable except in HPI and below GI: Reports: nausea and vomiting PFSH ED PFSH: Medical History Generalized anxiety disorder Major depressive disorder, recurrent severe without psychotic features Psychiatric care Surgical History History of rotator cuff surgery History of tonsillectomy and adenoidectomy S/P excision of ganglion cyst Family History Mother Diabetes Grandfather Diabetes Social History Smoking and tobacco status: current every day smoker cigarettes Packs smoked per day: 1 Years cigarettes smoked: 8 Quit status (tobacco): has tried quititng Number of times tried to quit tobacco: 4 Second hand smoke exposure: Yes Alcohol intake: never Adopted: No Caregiver/support person: No Lives independently: No Household members: spouse and children Current occupational status: employed History of recent travel: No Sexually active: Yes Current gender identity: Male Physical Exam Const: COMMON NORMALS: alert GENERAL APPEARANCE: cooperative and well developed HENMT: COMMON NORMALS: normocephalic and atraumatic HEAD & SCALP: normocephalic and atraumatic THROAT: posterior oropharynx normal Eye: COMMON NORMALS: conjunctivae normal CONJUNCTIVA: Yes conjunctivae normal SCLERA: sclerae normal Neck/C-Spine: COMMON NORMALS: supple GENERAL: Yes trachea midline Resp: COMMON NORMALS: clear to auscultation bilaterally EFFORT & INSPECTION: Yes able to speak in complete sentences AUSCULTATION: clear to auscultation bilaterally Cardio: COMMON NORMALS: regular rate and regular rhythm RATE: regular rate RHYTHM: regular rhythm GI: COMMON NORMALS: Soft to palpation PALPATION: Yes Soft to palpation, Yes Tenderness to palpation present (GI), Yes Guarding due to palpation present (GI) and No Rigid due to palpation Extremity: GENERAL: Yes normal exam except as noted and No edema Neuro: COMMON NORMALS: moves all extremities SENSORIUM/ORIENTATION: Yes alert and No Orientation impaired Psych: COMMON NORMALS: mental status grossly normal and Normal thought process present THOUGHT PROCESS: Normal thought process present Course Vital Signs: Vital signs: Vital Signs Temperature 97.7 F 02/21/22 17:11 Pulse Rate 83 02/21/22 22:50 Respiratory Rate 16 02/21/22 22:50 Blood Pressure 148/93 02/21/22 17:11 Pulse Oximetry 99 02/21/22 22:50 MDM - Abdominal Pain Medical Decision Making 26-year-old gentleman with history of primary presentation presenting with abdominal pain. Patient is nontoxic on exam and vitals are satisfactory. Abdominal exam with tenderness however no peritonitis and no evidence of acute surgical abdomen. Labs notable for hemoconcentration and mild dehydration. CT without acute pathology to explain symptoms. Patient mildly improved on reassessment. Most likely cause of symptoms is gastritis/onset abdominal pain. Plan to refer to endoscopy. The results of ED evaluation were discussed with the patient including prescriptions and/or symptomatic cares (if applicable) including appropriate and responsible use, followup plan, and return precautions. The patient verbalized understanding and felt safe for discharge. Medical Records I reviewed the patient's medical records. Lab Data I reviewed the patient's lab results. : 02/21/22 17:23 02/21/22 17:23 Labs/Radiology: Radiology Impressions Abdomen/Pelvis CT 02/21/22 20:56 IMPRESSION: No acute findings. Laboratory Results WBC 8.2 10^3/uL (4.0-10.0) 02/21/22 17: RBC 5.38 10^6/uL (4.1-5.3) H 02/21/22 17: Hgb 16.7 g/dL (11.7-16.6) H 02/21/22 17: Hct 46.4 % (42.0-52.0) 02/21/22 17: MCV 86.2 fl (80-94) 02/21/22 17: MCH 31.0 pg (28.0-34.0) 02/21/22 17: MCHC 36.0 g/dL (30.0-36.0) 02/21/22: RDW 12.7 % (12.1-15.1) 02/21/22: Plt Count 213 10^3/cmm (130-400) 02/21/22 17: MPV 11.7 fL (7.4-10.4) H 02/21/22 17: Neut % (Auto) 50.3 % 02/21/22 17: Lymph % (Auto) 38.2 % 02/21/22 17: [place] % (Auto) 7.9 % 02/21/22 17: Eos % (Auto) 2.7 % 02/21/22: Baso % (Auto) 0.5 % 02/21/22: Neut # (Auto) 4.13 10^3/uL (1.8-7.7) 02/21/22: Lymph # (Auto) 3.1 10^3/uL (0.8-4.8) 02/21/22 17: [place] # (Auto) 0.7 10^3/uL (0.2-0.9) 02/21/22 17: Eos # (Auto) 0.2 10^3/uL (0.0-0.8) 02/21/22: Baso # (Auto) 0.0 10^3/uL (0.0-0.1) 02/21/22 17: Nucleated RBC % (auto) 0 % 02/21/22: Nucleated RBCs # 0.0 /100WBC 02/21/22 17: Sodium 137 mmol/L (136-145) 02/21/22 17: Potassium 3.9 mmol/L (3.5-5.1) 02/21/22 17: Chloride 104 mmol/L (98-107) 02/21/22 17: Carbon Dioxide 21 mmol/L (22-29) L 02/21/22 17: Anion Gap 15.9 (5-19) 02/21/22 17: BUN 14 mg/dL (6-20) 02/21/22 17: Creatinine 0.9 mg/dL (0.7-1.2) 02/21/22 17: GFR Calculation 101.2 mL/min (90-130) 02/21/22 17: Glucose 128 mg/dL (65-115) H 02/21/22: Calculated Osmolality 286 mOsm/kg (285-295) 02/21/22 17: Calcium 9.6 mg/dL (8.5-10.5) 02/21/22: Total Bilirubin 0.2 mg/dL (0.15-1.2) 02/21/22 17: AST 24 U/L (0-40) 02/21/22 17: ALT 41 U/L (0-41) 02/21/22 17: Alkaline Phosphatase 78 U/L (40-130) 02/21/22 17: Total Protein 7.4 g/dL (6.6-8.7) 02/21/22 17: Albumin 4.3 g/dL (3.5-5.2) 02/21/22: Globulin 3.1 g/dL (1.3-4.6) 02/21/22 17: Urine Color Yellow (Yellow) 02/21/22 17: Urine Appearance Clear (CLEAR) 02/21/22 17: Urine pH 7 (5-7) 02/21/22: Ur Specific [place] 1.030 (1.005-1.030) 02/21/22: Urine Protein Neg (Negative) 02/21/22: Urine Glucose (UA) Norm (Normal) 02/21/22 17: Urine Ketones Negative (Negative) 02/21/22: Urine Blood Neg (Negative) 02/21/22: Urine Nitrate Negative (Negative) 02/21/22 17:22 Urine Bilirubin Neg (Negative) 02/21/22 17:22 Urine Urobilinogen Neg mg/dL (Negative) 02/21/22 17:22 Ur Leukocyte Esterase Negative (Negative) 02/21/22 17:22 Discharge Plan Discharge Patient Disposition: Home Clinical Impression: Abdominal pain Condition: Stable Prescriptions: New sucralfate 1 gram tablet 1 g PO BID 28 Days Qty: 56 0RF ondansetron 4 mg tablet,disintegrating 4 mg PO Q8H PRN (Reason: nausea and vomiting) Qty: 15 0RF oxycodone 5 mg tablet 5 mg PO Q4H PRN (Reason: pain) Qty: 10 0RF No Action fluticasone propionate [Flovent HFA] 110 mcg/actuation HFA aerosol inhaler 2 puff inhalation BID Qty: 12 3RF esomeprazole magnesium [Nexium] 40 mg capsule,delayed release(DR/EC) 40 mg PO DAILY Qty: 30 2RF albuterol sulfate [ProAir HFA] 90 mcg/actuation HFA aerosol inhaler See Rx Instructions .ROUTE .COMPLEX Qty: 8.5 0RF Dose Instruction: INHALE 2 PUFFS BY MOUTH EVERY 6 HOURS NEEDED FOR SHORTNESS OF BREATH OR WHEEZING Rx Instructions: INHALE 2 PUFFS BY MOUTH EVERY 6 HOURS NEEDED FOR SHORTNESS OF BREATH OR WHEEZING hydrocodone-acetaminophen 5-325 mg tablet 1 tab PO Q8H PRN (Reason: pain (scale score 7-10)) Qty: 6 0RF Discharge Orders: Discharge ED (Routine); Ordered 02/21/22 Ordered By: David Valdivia Referrals: Campos Mcmullen FNP [Primary Care Provider] - Discharge Diet: Advance as tolerated and Clear Liquid Discharge Activity: Increase activity as tolerated Patient Instructions: Diet for Stomach Ulcers and Gastritis (ED), Abdominal Pain (ED), Opioid Safety, Pain Management Activity Restrictions/Additional Instructions: Thank you for visiting the emergency department. You were seen and evaluate for abdominal pain. Based on ED evaluation and imaging the exact cause of your symptoms is unclear. Please continue plan to follow-up with gastroenterology. Follow-up with a primary care provider. Return to the emergency department for worsening symptoms, blood in vomit, lightheadedness or fainting, chest pain, shortness of breath, uncontrolled pain, inability to tolerate oral intake, or anything else that you are concerned about a feel needs emergency department evaluation. Stand Alone Forms: Work/School Release Coding Level of Care Code ED Solar Project Engineer for Manish Hayden
--- NOTE | 2022-02-21 20:56 | CTR_ITS ---
PROCEDURE INFORMATION: Exam: CT Abdomen And Pelvis With Contrast Exam date and time: 02/21/2022 9:11 PM Age: 26 years old Clinical indication: Abdominal pain; Patient HX: C/O epigastric pain with tarry stools; Additional info: Epigastric pain, black stools TECHNIQUE: Imaging protocol: Computed tomography of the abdomen and pelvis with contrast. Radiation optimization: All CT scans at this facility use at least one of these dose optimization techniques: automated exposure control; mA and/or kV adjustment per patient size (includes targeted exams where dose is matched to clinical indication); or iterative reconstruction. Contrast material: OMNI 350; Contrast volume: 100 ml; Contrast route: INTRAVENOUS (IV); COMPARISON: CT abdomen pelvis w con* [id number] 02/10/2021 10:57 PM RADIATION DOSE METRICS: Total DLP (mGy-cm): 1121.54 FINDINGS: Liver: Normal. No mass. Gallbladder and bile ducts: Normal. No calcified stones. No ductal dilation. Pancreas: Normal. No ductal dilation. Spleen: Normal. No splenomegaly. Adrenal glands: Normal. No mass. Kidneys and ureters: Normal. No hydronephrosis. Stomach and bowel: Unremarkable. No obstruction. No mucosal thickening. Appendix: No evidence of appendicitis. Intraperitoneal space: Unremarkable. No free air. No significant fluid collection. Vasculature: Unremarkable. No abdominal aortic aneurysm. Lymph nodes: Unremarkable. No enlarged lymph nodes. Urinary bladder: Unremarkable as visualized. Reproductive: Unremarkable as visualized. Bones/joints: No acute fracture. Soft tissues: Unremarkable. CT/CT abdomen pelvis w con* [id number] IMPRESSION: No acute findings.
[2022-02-21] MEDS: iohexol 350 mg/mL 100 mL Btl IV (21:14)
[2022-02-21 21:32] VITALS: RESP 16
[2022-02-21] MEDS: morphine 4 mg/mL SDV 1 mL IVP (21:32)
[2022-02-21] MEDS: sodium chloride 0.9% 1,000 ML 999 ML IV (21:34)
[2022-02-21] MEDS: pantoprazole 40 mg SDV 80 MG IVP (21:34)
[2022-02-21] MEDS: lidocaine 2% viscous 15 ML, aluminum-mag hydrox-simethicon 30 ML, sucralfate oral liq 1 GM PO (21:35)
[2022-02-21 22:50] VITALS: PULSE 83; RESP 16; O2SAT 99
== END 2022-02-21 22:50 | disposition home or self-care (01) ==
PROVIDERS: Family Medicine; Emergency Provider Emergency Medicine; PCP Nurse Practitioner Family
DX: R10.9 Unspecified abdominal pain (principal); F17.210 Nicotine dependence, cigarettes, uncomplicated
CPT/HCPCS: 74177; 80053; 81003; 85025; 96361; 96374; 96375; 99285; C9113; J2270; J7030; Q9967

== ENCOUNTER 2022-02-28 08:31 | Day surgery (SDC) | payer BC, MEDICAID, SELFPAY ==
[2022-02-27 10:45] VITALS: BMI 43.8
[2022-02-28 09:08] VITALS: BP 99/65; PULSE 64; RESP 18; TEMP 36.2; O2SAT 98
[2022-02-28] MEDS: sodium chloride 0.9% 1,000 ML 30 ML IV (09:14)
--- NOTE | 2022-02-28 10:03 | W.PM.OPSUD ---
Surgery/Procedure H&P Update DATE OF PROCEDURE: February 28, 2022 DATE H&P PERFORMED: 02/27/22 H&P UPDATE INFORMATION: I have reviewed H&P completed within last 30 days, I have examined patient prior to procedure and No changes to prior documentation PREOP DIAGNOSIS: Abdominal pain PRIMARY INDICATION FOR PROCEDURE: The same PLANNED PROCEDURE: Operation Date: 02/28/22 10:30 Proposed Procedures p EGD [id number],R10.9(Not Applicable) - Rober Espino MD
--- NOTE | 2022-02-28 10:05 | ANES.PREANE2 ---
Pre-Anesthetic Assessment Height/Weight: Height 1.7 m Weight 127.006 kg Temp Pulse Resp BP Pulse Ox O2 Del Method 97.1 F L 64 18 99/65 98 02/28/22 09:08 02/28/22 09:08 02/28/22 09:08 02/28/22 09:08 02/28/22 09:08 02/28/22 09:08 Preop Diagnosis: Abdominal pain Operation Date: 02/28/22 10:30 Proposed Procedures p EGD [id number],R10.9(Not Applicable) - Rober Espino MD Familial anesthetic complications: none Was Beta Jones taken within 24 hours: N/A Was Clonidine taken within 24 hours: N/A Last intake: Intake Last Liquid Date 02/27/22 Last Liquid Time 23:30 Last Solid Date 02/27/22 Last Solid Time 23:30 Social Tobacco 1 pack(s) per day Exam alert, oriented x 3, clear to auscultation bilaterally and regular rate & rhythm Airway Submandibular: within normal limits Cervical ROM: within normal limits Mallampati: Class I Dentition: false Pulmonary Asthma (inhaler as needed) and Sleep Apnea CV/HEM None reported None reported Hepatic None reported GI Gastroesophageal Reflux Disease (controlled) Metabolic Morbid Ob[place] [facility] None reported Neuropsych Anxiety Anesthetic Plan ASA status: 2 Anesthesia: MAC Risk of > 500 ml blood loss (7ml/kg in children): No Medications/Allergies Home Medications Medication Instructions Recorded Confirmed Last Taken Type fluticasone propionate 110 2 puff inhalation BID PRN Pain 02/27/22 02/27/22 Unknown History mcg/actuation HFA aerosol inhaler (Flovent HFA) omeprazole 40 mg capsule,delayed 40 mg PO DAILY 02/27/22 02/27/22 Unknown History release Allergies Allergy/AdvReac Type Severity Reaction Status Date / Time latex Allergy Intermediate Rash Verified 02/27/22 16:04 Current Medications Generic Name Dose Route Start Last Admin Trade Name Freq PRN Reason Stop Dose Admin Sodium Chloride 1,000 mls @ 30 mls/hr 02/28/22 09:00 02/28/22 09:14 Sodium Chloride 0.9% IV 03/01/22 08:59 30 mls/hr .Q24H BRAD Administration PFSH Anesthesia Medical History Generalized anxiety disorder Major depressive disorder, recurrent severe without psychotic features Psychiatric care Surgical History History of rotator cuff surgery History of tonsillectomy and adenoidectomy S/P excision of ganglion cyst Family History Mother Diabetes Grandfather Diabetes Social History Smoking and tobacco status: current every day smoker cigarettes Packs smoked per day: 1 Years cigarettes smoked: 8 Quit status (tobacco): has tried quititng Number of times tried to quit tobacco: 4 Second hand smoke exposure: Yes Alcohol intake: never Adopted: No Caregiver/support person: No Lives independently: No Household members: spouse and children Current occupational status: employed History of recent travel: No Sexually active: Yes Current gender identity: Male Data Anesthesia Cardiac Studies: No Data to Display
[2022-02-28 10:45] VITALS: BP 106/65; PULSE 67; RESP 18; TEMP 36.1; O2SAT 93
[2022-02-28 10:53] VITALS: BP 110/74; PULSE 46; RESP 18; O2SAT 94
--- NOTE | 2022-02-28 13:25 | ANE.PACU2 ---
Inpatient post-anesthesia follow up: Airway intact: Yes Vital signs: Temperature 97.0 F Pulse Rate 46 Respiratory Rate 18 Blood Pressure 110/74 Pulse Oximetry 94 Oxygen Delivery Me thod Room Air Oxygen Flow Rate Fraction of Inspir ed Oxygen Hydration adequate: Yes Nausea and vomiting: No Pain level: 1 Mental status: Baseline
== END 2022-02-28 11:20 | disposition home or self-care (01) ==
PROVIDERS: PCP Nurse Practitioner Family; Visit Provider Surgery
PROC: 0DJ08ZZ Inspection of Upper Intestinal Tract, Via Natural or Artificial Opening Endoscopic (ICD-10-PCS; CPT 43235; principal; 2022-02-28 10:30)
DX: R10.13 Epigastric pain (principal); K21.00 Gastro-esophageal reflux disease with esophagitis, without bleeding; K29.70 Gastritis, unspecified, without bleeding; J45.909 Unspecified asthma, uncomplicated; G47.30 Sleep apnea, unspecified; E66.01 Morbid (severe) obesity due to excess calories; Z68.41 Body mass index [BMI] 40.0-44.9, adult; F17.210 Nicotine dependence, cigarettes, uncomplicated
CPT/HCPCS: 43239; 88305; J2704; J7030

== ENCOUNTER 2022-09-06 09:35 | Outpatient (CLI) | payer BC, MEDICAID, SELFPAY ==
--- NOTE | 2022-09-06 09:46 | US_ITS ---
WS: [id number] TESTICULAR ULTRASOUND HISTORY: TESTICLE SWELLING COMPARISON: None available. TECHNIQUE: Real-time and color Doppler imaging or utilized to perform a testicular ultrasound. Right testicle: 4.1 cm x 2.7 cm x 2.0 cm. Normal size and echogenicity. No mass or torsion. Normal color Doppler is present throughout. Systolic and diastolic velocities are both present. No significant hydrocele. Right epididymis: Normal epididymis with no increased vascularity. Left testicle: 3.9 cm x 2.5 cm x 2.4 cm. Normal size and echogenicity. No mass or torsion. Normal color Doppler is present throughout. Systolic and diastolic velocities are both present. No significant hydrocele. Left epididymis: Normal epididymis with no increased vascularity. Small LEFT varicocele similar to the prior study. US/US scrotum [id number] IMPRESSION: 1. No testicular mass or torsion. No orchitis. 2. Stable, small LEFT varicocele.
== END 2022-09-06 09:36 | disposition home or self-care (01) ==
LOC: RAD 09:40
PROVIDERS: PCP Family Medicine; Visit Provider Family Medicine
DX: N50.89 Other specified disorders of the male genital organs (principal); I86.1 Scrotal varices
CPT/HCPCS: 76870

== ENCOUNTER 2022-09-29 15:43 | Inpatient (IN) | payer BC, SELFPAY ==
[2022-09-29 15:48] VITALS: BMI 39.1
[2022-09-29 16:03] VITALS: BP 126/78; PULSE 70; RESP 16; O2SAT 94
--- NOTE | 2022-09-29 16:07 | ED.C_ITS ---
Documented by User: Denton Rothman DO 09/29/22 16:59 HPI - Psych General: Chief Complaint: Psychiatric Symptoms Stated Complaint: SI Time Seen by Provider: 09/29/22 15:52 History of Present Illness: Patient presents to the ER by EMS with complaints of suicidal attempt. Patient is noncooperative and will answer any questions to myself. Per EMS he may have taken some Topamax may be 50 mg x 10 tabs but this is unknown. They say he did try to overdose on Keppra 2 weeks ago but did not go anywhere she can and treatment. Is a smoker pot 2-3 bowls today. They say he does have superficial greenfield on his right inner thigh where he cuts himself. Patient did talk to nursing and did state that he did take those pills with an intent to harm himself. Patient denies any homicidality patient states he has been feeling suicidal for the last couple months. MD complaint: suicidal ideation Duration: constant History of same: Yes Associated psychiatric symptoms: suicidal ideation Associated symptoms: Reports suicidal ideation Review of Systems General: Reports: ROS unobtainable due to mental status (Patient refuses answer questions or cooperate with exam or history) Psych: Reports: suicidal ideation [facility] ED PFSH: Medical History (Updated 07/08/22 @ 09:49 by Hailey Gauthier) Generalized anxiety disorder Major depressive disorder, recurrent severe without psychotic features Surgical History History of rotator cuff surgery History of tonsillectomy and adenoidectomy S/P excision of ganglion cyst Family History Mother Diabetes Grandfather Diabetes Social History Smoking and tobacco status: current every day smoker cigarettes Packs smoked per day: 1 Years cigarettes smoked: 8 Quit status (tobacco): has tried quititng Number of times tried to quit tobacco: 4 Second hand smoke exposure: Yes Alcohol intake: never Substance/Drug Use: never Adopted: No Caregiver/support person: No Lives independently: No Household members: spouse and children Current occupational status: employed Sexually active: Yes Do you think of yourself as: Straight/Heterosexual Current gender identity: Male Physical Exam Const: COMMON NORMALS: average body habitus, healthy appearing, alert and well nourished EXAM LIMITATIONS: behavioral limitations (Patient refuses to cooperate with exam or answer questions.) HENMT: COMMON NORMALS: normocephalic, atraumatic, external ears normal and Normal external nose present HEAD & SCALP: normocephalic and atraumatic NOSE: Normal external nose present EXTERNAL EAR: Yes external ears normal Eye: COMMON NORMALS: Equal, round and reactive pupils present, EOMs intact tita aterally and no scleral icterus PUPIL: Yes Equal, round and reactive pupils present Neck/C-Spine: COMMON NORMALS: no JVD Chest: COMMONS NORMALS: normal inspection of the chest and normal palpation of entire chest wall Resp: COMMON NORMALS: normal respiratory effort, No retractions, No use of accessory muscles and clear to auscultation bilaterally AUSCULTATION: clear to auscultation bilaterally Cardio: COMMON NORMALS: no JVD, regular rate, S1 normal heart sound present, S2 normal heart sound present, No gallops present (Cardio), No clicks present (Cardio), No murmurs present (Cardio) and No rub (Cardio) RATE: regular rate HEART SOUNDS: S1 normal heart sound present and S2 normal heart sound present Neuro: SENSORIUM/ORIENTATION: Yes alert Psych: APPEARANCE: Yes grossly normal ATTITUDE: Yes Withdrawn affect present and Yes uncooperative Course Vital Signs: Vital signs: Vital Signs Pulse Rate 78 09/29/22 17:03 Respiratory Rate 16 09/29/22 16:03 Blood Pressure 126/68 09/29/22 17:03 Pulse Oximetry 97 09/29/22 17:03 Oxygen Delivery Me thod Room Air 09/29/22 17:03 MDM - Psych Differential Diagnosis Likely suicidal ideation Medical Records I reviewed the patient's medical records. Lab Data I reviewed the patient's lab results. 09/29/22 16:36 09/29/22 16:36 Laboratory Results WBC 9.4 10^3/uL (4.0-10.0) 09/29/22 16:36 RBC 5.19 10^6/uL (4.1-5.3) 09/29/22 16:36 Hgb 16.1 g/dL (11.7-16.6) 09/29/22 16:36 Hct 46.0 % (42.0-52.0) 09/29/22 16:36 MCV 88.6 fl (80-94) 09/29/22 16:36 MCH 31.0 pg (28.0-34.0) 09/29/22 16:36 MCHC 35.0 g/dL (30.0-36.0) 09/29/22 16:36 RDW 12.8 % (12.1-15.1) 09/29/22 16:36 Plt Count 181 10^3/cmm (130-400) 09/29/22 16:36 MPV 11.8 fL (7.4-10.4) H 09/29/22 16:36 Neut % (Auto) 77.9 % 09/29/22 16:36 Lymph % (Auto) 13.3 % 09/29/22 16:36 [place]ult[place] % (Auto) 7.1 % 09/29/22 16:36 Eos % (Auto) 1.0 % 09/29/22 16:36 Baso % (Auto) 0.4 % 09/29/22 16:36 Neut # (Auto) 7.35 10^3/uL (1.8-7.7) 09/29/22 16:36 Lymph # (Auto) 1.3 10^3/uL (0.8-4.8) 09/29/22 16:36 [place] # (Auto) 0.7 10^3/uL (0.2-0.9) 09/29/22 16:36 Eos # (Auto) 0.1 10^3/uL (0.0-0.8) 09/29/22 16:36 Baso # (Auto) 0.0 10^3/uL (0.0-0.1) 09/29/22 16:36 Nucleated RBC % (auto) 0 % 09/29/22 16:36 Nucleated RBCs # 0.0 /100WBC 09/29/22 16:36 Sodium 140 mmol/L (136-145) 09/29/22 16:36 Potassium 3.6 mmol/L (3.5-5.1) 09/29/22 16:36 Chloride 107 mmol/L (98-107) 09/29/22 16:36 Carbon Dioxide 20 mmol/L (22-29) L 09/29/22 16:36 Anion Gap 16.6 (5-19) 09/29/22 16:36 BUN 7 mg/dL (6-20) 09/29/22 16:36 Creatinine 0.7 mg/dL (0.7-1.2) 09/29/22 16:36 GFR Calculation 134.3 mL/min (90-130) H 09/29/22 16:36 Glucose 110 mg/dL (65-115) 09/29/22 16:36 Calculated Osmolality 289 mOsm/kg (285-295) 09/29/22 16:36 Calcium 9.4 mg/dL (8.5-10.5) 09/29/22 16:36 Total Bilirubin 0.3 mg/dL (0.15-1.2) 09/29/22 16:36 AST 15 U/L (0-40) 09/29/22 16:36 ALT 23 U/L (0-41) 09/29/22 16:36 Alkaline Phosphatase 77 U/L (40-130) 09/29/22 16:36 Total Protein 6.7 g/dL (6.6-8.7) 09/29/22 16:36 Albumin 4.3 g/dL (3.5-5.2) 09/29/22 16:36 Globulin 2.4 g/dL (1.3-4.6) 09/29/22 16:36 Urine Color Yellow (Yellow) 09/29/22 17:20 Urine Appearance Clear (CLEAR) 09/29/22 17:20 Urine pH 8 (5-7) H 09/29/22 17:20 Ur Specific [place] 1.010 (1.005-1.030) 09/29/22 17:20 Urine Protein Neg (Negative) 09/29/22 17:20 Urine Glucose (UA) Norm (Normal) 09/29/22 17:20 Urine Ketones Negative (Negative) 09/29/22 17:20 Urine Blood Neg (Negative) 09/29/22 17:20 Urine Nitrate Negative (Negative) 09/29/22 17:20 Urine Bilirubin Neg (Negative) 09/29/22 17:20 Prot Sulfosalicylic Acd Negative (Negative) 09/29/22 17:20 Urine Urobilinogen Norm mg/dL (Negative) 09/29/22 17:20 Ur Leukocyte Esterase Negative (Negative) 09/29/22 17:20 Salicylates < 0.3 mg/dL (3-10) L 09/29/22 16:36 Urine Opiates Screen Negative ng/mL (Negative) 09/29/22 17:20 Acetaminophen < 5.0 ug/mL (10-30) L 09/29/22 16:36 Ur Barbiturates Screen Negative ng/mL (Negative) 09/29/22 17:20 Ur Phencyclidine Scrn Negative ng/mL (Negative) 09/29/22 17:20 Ur Amphetamines Screen Negative ng/mL (Negative) 09/29/22 17:20 U Benzodiazepines Scrn Negative ng/mL (Negative) 09/29/22 17:20 Urine Cocaine Screen Negative ng/mL (Negative) 09/29/22 17:20 U Marijuana (THC) Screen Positive ng/mL (Negative) H 09/29/22 17:20 Ethyl Alcohol < 10 mg/dL (0-10) 09/29/22 16:36 Discharge Plan Discharge Patient Disposition: Admitted As Inpatient Admit Provider: Michael Kraus Condition: Stable Coding Level of Care Code ED Frozen Food Department Manager for Chg Fwd Documented by User: Aaron Lopez DO 09/29/22 20:13 HPI - Psych General: Chief Complaint: Psychiatric Symptoms Stated Complaint: SI Time Seen by Provider: 09/29/22 15:52 PFSH ED PFSH: Medical History (Updated 07/08/22 @ 09:49 by Hailey Gauthier) Generalized anxiety disorder Major depressive disorder, recurrent severe without psychotic features Surgical History History of rotator cuff surgery History of tonsillectomy and adenoidectomy S/P excision of ganglion cyst Family History Mother Diabetes Grandfather Diabetes Social History Smoking and tobacco status: current every day smoker cigarettes Packs smoked per day: 1 Years cigarettes smoked: 8 Quit status (tobacco): has tried quititng Number of times tried to quit tobacco: 4 Second hand smoke exposure: Yes Alcohol intake: never Substance/Drug Use: never Adopted: No Caregiver/support person: No Lives independently: No Household members: spouse and children Current occupational status: employed Sexually active: Yes Do you think of yourself as: Straight/Heterosexual Current gender identity: Male Course Vital Signs: Vital signs: Vital Signs Pulse Rate 78 09/29/22 17:03 Respiratory Rate 16 09/29/22 16:03 Blood Pressure 126/68 09/29/22 17:03 Pulse Oximetry 97 09/29/22 17:03 Oxygen Delivery Me thod Room Air 09/29/22 17:03 MDM - Psych Medical Decision Making 27-year-old male checked out to me by the previous physician at shift change. This gentleman had taken too many Topamax with thoughts of harming himself. He admitted this to the previous physician as well as nursing staff. Affidavits were written. He will be placed on 96-hour hold. His laboratory is stable. His vitals are good. He is not intoxicated. Spoke with psychiatry. They are willing to take for admission. Lab Data 09/29/22 16:36 09/29/22 16:36 Laboratory Results WBC 9.4 10^3/uL (4.0-10.0) 09/29/22 16:36 RBC 5.19 10^6/uL (4.1-5.3) 09/29/22 16:36 Hgb 16.1 g/dL (11.7-16.6) 09/29/22 16:36 Hct 46.0 % (42.0-52.0) 09/29/22 16:36 MCV 88.6 fl (80-94) 09/29/22 16:36 MCH 31.0 pg (28.0-34.0) 09/29/22 16:36 MCHC 35.0 g/dL (30.0-36.0) 09/29/22 16:36 RDW 12.8 % (12.1-15.1) 09/29/22 16:36 Plt Count 181 10^3/cmm (130-400) 09/29/22 16:36 MPV 11.8 fL (7.4-10.4) H 09/29/22 16:36 Neut % (Auto) 77.9 % 09/29/22 16:36 Lymph % (Auto) 13.3 % 09/29/22 16:36 [place] % (Auto) 7.1 % 09/29/22 16:36 Eos % (Auto) 1.0 % 09/29/22 16:36 Baso % (Auto) 0.4 % 09/29/22 16:36 Neut # (Auto) 7.35 10^3/uL (1.8-7.7) 09/29/22 16:36 Lymph # (Auto) 1.3 10^3/uL (0.8-4.8) 09/29/22 16:36 [place] # (Auto) 0.7 10^3/uL (0.2-0.9) 09/29/22 16:36 Eos # (Auto) 0.1 10^3/uL (0.0-0.8) 09/29/22 16:36 Baso # (Auto) 0.0 10^3/uL (0.0-0.1) 09/29/22 16:36 Nucleated RBC % (auto) 0 % 09/29/22 16:36 Nucleated RBCs # 0.0 /100WBC 09/29/22 16:36 Sodium 140 mmol/L (136-145) 09/29/22 16:36 Potassium 3.6 mmol/L (3.5-5.1) 09/29/22 16:36 Chloride 107 mmol/L (98-107) 09/29/22 16:36 Carbon Dioxide 20 mmol/L (22-29) L 09/29/22 16:36 Anion Gap 16.6 (5-19) 09/29/22 16:36 BUN 7 mg/dL (6-20) 09/29/22 16:36 Creatinine 0.7 mg/dL (0.7-1.2) 09/29/22 16:36 GFR Calculation 134.3 mL/min (90-130) H 09/29/22 16:36 Glucose 110 mg/dL (65-115) 09/29/22 16:36 Calculated Osmolality 289 mOsm/kg (285-295) 09/29/22 16:36 Calcium 9.4 mg/dL (8.5-10.5) 09/29/22 16:36 Total Bilirubin 0.3 mg/dL (0.15-1.2) 09/29/22 16:36 AST 15 U/L (0-40) 09/29/22 16:36 ALT 23 U/L (0-41) 09/29/22 16:36 Alkaline Phosphatase 77 U/L (40-130) 09/29/22 16:36 Total Protein 6.7 g/dL (6.6-8.7) 09/29/22 16:36 Albumin 4.3 g/dL (3.5-5.2) 09/29/22 16:36 Globulin 2.4 g/dL (1.3-4.6) 09/29/22 16:36 Urine Color Yellow (Yellow) 09/29/22 17:20 Urine Appearance Clear (CLEAR) 09/29/22 17:20 Urine pH 8 (5-7) H 09/29/22 17:20 Ur Specific [place] 1.010 (1.005-1.030) 09/29/22 17:20 Urine Protein Neg (Negative) 09/29/22 17:20 Urine Glucose (UA) Norm (Normal) 09/29/22 17:20 Urine Ketones Negative (Negative) 09/29/22 17:20 Urine Blood Neg (Negative) 09/29/22 17:20 Urine Nitrate Negative (Negative) 09/29/22 17:20 Urine Bilirubin Neg (Negative) 09/29/22 17:20 Prot Sulfosalicylic Acd Negative (Negative) 09/29/22 17:20 Urine Urobilinogen Norm mg/dL (Negative) 09/29/22 17:20 Ur Leukocyte Esterase Negative (Negative) 09/29/22 17:20 Salicylates < 0.3 mg/dL (3-10) L 09/29/22 16:36 Urine Opiates Screen Negative ng/mL (Negative) 09/29/22 17:20 Acetaminophen < 5.0 ug/mL (10-30) L 09/29/22 16:36 Ur Barbiturates Screen Negative ng/mL (Negative) 09/29/22 17:20 Ur Phencyclidine Scrn Negative ng/mL (Negative) 09/29/22 17:20 Ur Amphetamines Screen Negative ng/mL (Negative) 09/29/22 17:20 U Benzodiazepines Scrn Negative ng/mL (Negative) 09/29/22 17:20 Urine Cocaine Screen Negative ng/mL (Negative) 09/29/22 17:20 U Marijuana (THC) Screen Positive ng/mL (Negative) H 09/29/22 17:20 Ethyl Alcohol < 10 mg/dL (0-10) 09/29/22 16:36 Discharge Plan Discharge Patient Disposition: Admitted As Inpatient Admit Provider: Michael Kraus Condition: Stable Coding Level of Care Code ED Frozen Food Department Manager for Manish Hayden
--- NOTE | 2022-09-29 16:09 | PC.NURSE ---
PT refuses to answer questions for staff, will reassess at later time. pt on monitor. VSS
[2022-09-29 16:33] VITALS: BP 126/78; PULSE 60; O2SAT 96
[2022-09-29 16:43] LABS: Basophils % 0.4 %; Eosinophils # 0.1 10^3/uL (0.0-0.8); Hemoglobin 16.1 g/dL (11.7-16.6); Lymphocytes # 1.3 10^3/uL (0.8-4.8); Lymphocytes % 13.3 %; Mean Corpuscular Volume 88.6 fl (80-94); Mean Platelet Volume 11.8 fL (7.4-10.4); Monocytes # 0.7 10^3/uL (0.2-0.9); Monocytes % 7.1 %; Neutrophils # 7.35 10^3/uL (1.8-7.7); Neutrophils % 77.9 %; Nucleated Red Blood Cells % 0 %; Platelet Count 181 10^3/cmm (130-400); Red Blood Count 5.19 10^6/uL (4.1-5.3); Red Cell Distribution Width 12.8 % (12.1-15.1); White Blood Count 9.4 10^3/uL (4.0-10.0)
[2022-09-29 17:03] VITALS: BP 126/68; PULSE 78; O2SAT 97
[2022-09-29 17:10] LABS: Alanine Aminotransferase 23 U/L (0-41); Albumin Level 4.3 g/dL (3.5-5.2); Alkaline Phosphatase 77 U/L (40-130); Anion Gap 16.6 (5-19); Aspartate Amino Transferase 15 U/L (0-40); Blood Urea Nitrogen 7 mg/dL (6-20); Calcium 9.4 mg/dL (8.5-10.5); Carbon Dioxide 20 mmol/L (22-29); Chloride 107 mmol/L (98-107); Globulin 2.4 g/dL (1.3-4.6); Glomerular Filtration Rate 134.3 mL/min (90-130); Glucose 110 mg/dL (65-115); Osmolality Calculated 289 mOsm/kg (285-295); Potassium 3.6 mmol/L (3.5-5.1); Sodium 140 mmol/L (136-145); Total Bilirubin 0.3 mg/dL (0.15-1.2); Total Protein 6.7 g/dL (6.6-8.7)
[2022-09-29 17:14] LABS: Acetaminophen < 5.0 ug/mL (10-30); Alcohol Level < 10 mg/dL (0-10); Salicylate < 0.3 mg/dL (3-10)
--- NOTE | 2022-09-29 17:23 | PC.NURSE ---
POISON CONTROL CONTACTED REGARDING PT POSSIBLE OVERDOSE OF TOPOMAX. POISON CONTROL REPORTED THAT AMOUNT TAKEN IS SUBTOXIC. POISON CONTROL FAXED OVER DRUG INFORMATION ON TOPIRAMATE
--- NOTE | 2022-09-29 17:54 | PC.NURSE ---
Spoke with [place] poison control about patient's overdose on Topomax 50mg [id number]. Poison control advised that this is a subtoxic level and that if it is immediate release that medication has a 2-hr peak time, and that if medication is extended release it has a 16-24hr peak time. Poison control advised to watch for increased drowsiness and lethargy.
[2022-09-29 17:58] LABS: Add Urine Microscopic? NO; Charge for UA Resulting for Rev
[2022-09-29 18:25] LABS: Urine Appearance Clear (CLEAR); Urine Color Yellow (Yellow); pH Urine 8 (5-7)
[2022-09-29 18:26] LABS: Bilirubin Urine Neg (Negative); Blood Urine Neg (Negative); Glucose Urine UA Norm (Normal); Ketones Urine Negative (Negative); Leukocyte Esterase Urine Negative (Negative); Nitrate Urine Negative (Negative); Protein Urine Neg (Negative); Sulfosalicylic Acid Urine Negative (Negative); Urobilinogen Urine Norm (Negative)
[2022-09-29 18:36] LABS: Amphetamines Screen Urine Negative (Negative); Barbiturates Screen Urine Negative (Negative); Benzodiazepines Screen Urine Negative (Negative); Cocaine Screen Urine Negative (Negative); Opiate Screen Urine Negative (Negative); PCP Screen Urine Negative (Negative); THC Screen Urine Positive (Negative)
[2022-09-29 20:50] VITALS: BP 127/86; PULSE 60; RESP 18; O2SAT 99
[2022-09-29 21:56] VITALS: BP 121/76; PULSE 59; RESP 18; TEMP 36.7; O2SAT 98
[2022-09-29 22:00] VITALS: BP 121/76; PULSE 59; RESP 18; TEMP 36.7; O2SAT 98
--- NOTE | 2022-09-30 00:31 | PC.NURSE ---
Pt arrived to NPU w/security and nurse at side. Pt withdrawn, cooperative, and disheveled in appearance. Assessments completed.
[2022-09-30 06:00] VITALS: BP 112/75; PULSE 62; RESP 18; TEMP 36.7; O2SAT 98
[2022-09-30] MEDS: acetaminophen 325 mg Tablet 650 MG PO ×2 (06:56→20:15)
[2022-09-30] MEDS: nicotine 2 mg Gum BUCCAL ×3 (08:42→15:44)
[2022-09-30] MEDS: hyDROXYzine 25 mg Capsule 50 MG PO (10:39)
--- NOTE | 2022-09-30 10:40 | PC.NURSE ---
PRN VISTARIL 50 MG GIVEN PO PER PT C/O STATED ANXIETY
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
[2022-09-30] MEDS: sertraline 50 mg Tablet 25 MG PO (13:39)
[2022-09-30 14:00] VITALS: BP 119/70; PULSE 71; RESP 16; TEMP 36.9; O2SAT 99
[2022-09-30] MEDS: prazosin 1 mg Capsule 2 MG PO (20:15)
[2022-09-30 21:03] VITALS: BP 107/62; PULSE 96; RESP 18; TEMP 36.9; O2SAT 98
[2022-10-01 06:00] VITALS: BP 96/58; PULSE 61; RESP 18; TEMP 36.8; O2SAT 97
[2022-10-01] MEDS: nicotine 2 mg Gum BUCCAL ×7 (08:05→21:42)
[2022-10-01] MEDS: sertraline 50 mg Tablet 25 MG PO ×2 (08:06→19:58)
[2022-10-01] MEDS: hyDROXYzine 25 mg Capsule 50 MG PO ×2 (09:36→21:42)
--- NOTE | 2022-10-01 09:36 | PC.NURSE ---
PRN VISTARIL 50 MG GIVEN PO PER PT C/O STATED ANXIETY
[2022-10-01 14:00] VITALS: BP 108/74; PULSE 78; RESP 20; TEMP 36.6; O2SAT 97
--- NOTE | 2022-10-01 18:46 | P.NPUPN_ITS ---
Subjective NPU Subjective: Patient is a 27-year-old white male with PTSD and depression along with borderline personality traits admitted with suicidal ideation. He had reported continued depression but states that he was feeling more motivated. He had reported continued concern about his seizures but stated that he did not have a seizure while here in the hospital. He reported that the suicidal thoughts were diminishing. He had endorsed feeling trapped at home and stated that his energy and motivation had remained low and had been that way for several weeks. Staff notes the patient had been able to attend groups. He had reported having more nightmares last night. He reported that he was not having any thoughts about hurting anyone else. He had reported that he did not wish to see his biological father currently and denied his visit yesterday. He had reported having less thoughts of cutting today. Mental Status Exam MSE Comments: Patient is a casually dressed white male who is sitting in his bed who appeared in mild to moderate distress. Continued evidence of hypervigilance. His gait was within normal limits. His hygiene was fair. There was no evidence of any abnormal involuntary motor movements tics or tremors. There was no moderate psychomotor retardation. His thought process was linear, logical and goal- directed. His thought content showed evidence of suicidal ideation with no ho micidal ideation at this time. He did not appear to be responding to internal stimuli. There was no evidence of delusional thinking. His speech was normal in regards to volume and prosody with slight diminishment in rate. His attention span appeared fair. His recent and remote memory appeared poor as he had difficulties recalling 3 words after 5 minutes and had difficulties with registration of 3 words. His insight is poor. His judgment is poor. His impulse control appeared limited. Vitals/I&O/Wt Last Vital Signs Temp 98 F 10/01/22 14:00 Pulse 78 10/01/22 14:00 Resp 20 H 10/01/22 14:00 BP 108/74 10/01/22 14:00 Pulse Ox 97 10/01/22 14:00 O2 Del Method Room Air 10/01/22 06:00 Data NPU 09/29/22 16:36 09/29/22 16:36 A&P Assessment and plan (1) Major depressive disorder: (2) PTSD (post-traumatic stress disorder): (3) Borderline personality disorder: Plan This is a 27-year-old white male with a history of borderline personality traits, PTSD, major depressive disorder admitted with suicidal idea tion and exacerbation of PTSD symptoms and increased feelings of hopelessness after attempting overdose by antiepileptic medications. 1.? ?Engage? patient in individual ,milieu, and group therapy ?2. ? Continue prazosin 2 mg at night and held Topamax and Keppra at the requ est of the patient. We will increase Zoloft to 50 mg daily. ?3. ? TO-15 minute checks on the unit. ?4.? Recommend sober living treatment at the highest level of care to which the patient is willing to commit. 5. Referral for psychotherapy-PTSD, DBT? Involuntary Hold Information 96 Hour Hold: 96 Hour Involuntary Admission: Yes 96 Hour Hold Ending Date: 10/04/22 96 Hour Hold Ending Time: 00:01 Attestations NPU Medical Necessity Statement*: Hospitalization is medically necessary and deemed to be the clinically appropriate intervention at this time. We will monitor and initiate medications while making changes as indicated. His likely length of stay is 1-2 days. Coding Level of Care Code Acute Code for [facility] Fwd Diagnoses Major depressive disorder F32.9 PTSD (post-traumatic stress disorder) F43.10 Borderline personality disorder F60.3
[2022-10-01] MEDS: prazosin 1 mg Capsule 2 MG PO (20:00)
[2022-10-01 22:00] VITALS: RESP 18
[2022-10-02 06:00] VITALS: BP 114/70; PULSE 75; RESP 16; TEMP 36.6; O2SAT 97
[2022-10-02] MEDS: nicotine 2 mg Gum BUCCAL ×5 (06:46→15:25)
[2022-10-02 08:09] VITALS: BP 149/95; PULSE 95; RESP 20; TEMP 36.4; O2SAT 98
[2022-10-02 08:09] LABS: Glucose Point of Care 145 mg/dL (70-110)
--- NOTE | 2022-10-02 08:09 | PC.NURSE ---
AT APPROXIMATELY 0800 PT ROOMATE CAME TO NURSES STATION STATING HEY HE IS HAVE A SEIZURE IN THERE THIS RN ALERTED OTHER NURSE AND IMMEDIATELY WENT TO THE PT ROOM. UPON ENTERING PT ROOM PT WAS IN BED, ON HIS R SIDE GRUNTING WITH ARMS STRAIGHT BUT TURNED IN. PT LEGS WERE STRAIGHT WITH ANKLES CROSSED. PT WOULD ARCH BACK THEN UN ARCH THE BACK. THIS LASTED ABOUT 45SECONDS TO 1 MINUTE AFTER THIS NURSE ENTERED THE ROOM. PT WAS UNWILLING TO TELL THIS NURSE OR DOCTORS HIS NAME OR WHERE HE WAS. PT DID ANSWER YES OR NO QUESTIONS WITH HEAD NODS. PT DID ALLOW THIS NURSE TO TAKE VITALS WHICH WERE FOLLOWS BP: 149/95 PULSE:95 SPO2:98% TEMP:97.6 RESP:20 BLOOD SUGAR:145 PT APPEARS FRIGHTENED AND IS JUST STARING OUT THE WINDOW. THIS NURSE ASKED IF PT NEEDED ANYTHING, PT SHOOK HIS HEAD NO. WILL CONTINUE TO MONITOR PT.
[2022-10-02] MEDS: sertraline 50 mg Tablet PO (09:03)
--- NOTE | 2022-10-02 12:29 | PC.NURSE ---
PT WAS EDUCATED ON THE REASONS TO WHY THE DOCTOR IS RESTARTING HIS SEIZURE MEDICATIONS. PT IS UNHAPPY ABOUT RESTARTING HIS MEDICATION AND VERBALIZES UNDERSTANDING OF RESTARTING IT.
[2022-10-02 14:00] VITALS: BP 128/78; PULSE 91; RESP 17; TEMP 36.6; O2SAT 98
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
[2022-10-02 14:45] VITALS: BP 149/95; PULSE 95; RESP 20; TEMP 36.4; O2SAT 98
[2022-10-02] MEDS: carBAMazepine 200 mg Tablet PO (15:23)
== END 2022-10-02 15:59 | disposition home or self-care (01) | DRG 918 ==
LOC: ER 18:17 → NP 20:09
PROVIDERS: Emergency Medicine; Admitting Provider Psychiatry & Neurology Psychiatry; Emergency Provider Emergency Medicine; PCP Family Medicine; Visit Provider Psychiatry & Neurology Psychiatry
DX: T42.6X2A Poisoning by other antiepileptic and sedative-hypnotic drugs, intentional self-harm, initial encounter (principal); R45.851 Suicidal ideations; F32.9 Major depressive disorder, single episode, unspecified; F43.10 Post-traumatic stress disorder, unspecified; X58.XXXS Exposure to other specified factors, sequela; F41.1 Generalized anxiety disorder; F12.90 Cannabis use, unspecified, uncomplicated; F17.210 Nicotine dependence, cigarettes, uncomplicated; Z91.148 Patient's other noncompliance with medication regimen for other reason; R56.9 Unspecified convulsions; F60.3 Borderline personality disorder
CPT/HCPCS: 36415; 36416; 80053; 80306; 80307; 81003; 82962; 85025; 97150; 97165; 99238; 99285

== ENCOUNTER 2025-01-09 15:33 | Emergency (ER) | payer BC, MEDICAID, SELFPAY ==
--- OUTSIDE RECORDS SUMMARY | 2025-01-09 15:39 | XMS_ITS | Encounter Summary ---
Author Organization [facility] Address [address] [place] [address] Care Team Providers Care Plateman Name Role Phone Jean Carlos Yusuf MD Primary Care Provider [phone] Encounter Details Date Type Department Care Team (Latest Contact Info) Description 03/16/2001 Outpatient Historical [facility] Family Medicine [address] [address] David Rocha MD [address] [facility] [address] [place] [address] ACUTE SINUSITIS NOS (Primary Dx); ACUTE TONSILLITIS Social History Tobacco Use Types Packs/Day Years Used Date Smoking Tobacco: Never Assessed Sex and Gender Information Value Date Recorded Sex Assigned at Not on file 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
--- OUTSIDE RECORDS SUMMARY | 2025-01-09 15:39 | XMS_ITS | Encounter Summary ---
Author Organization [facility] Address [address] [place] [address] Care Team Providers Care Survey Questionnaire Designer Name Role Phone Jean Carlos Yusuf MD Primary Care Provider [phone] Encounter Details Date Type Department Care Team (Latest Contact Info) Description 01/02/2001 Outpatient Historical [facility] Family Medicine [place] [address] [address] Dimitris Noriega DO NO ADDRESS ON FILE Streptococcal sore throat (Primary Dx) Social History Tobacco Use Types Packs/Day Years Used Date Smoking Tobacco: Never Assessed Sex and Gender Information Value Date Recorded Sex Assigned at Not on file 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
--- OUTSIDE RECORDS SUMMARY | 2025-01-09 15:39 | XMS_ITS | Encounter Summary ---
Author Organization [facility] Address [address] [place] [address] Care Team Providers Care Supervisor Natural Gas Plant Name Role Phone Jean Carlos Yusuf MD Primary Care Provider [phone] [phone] Reason for Referral * Outpatient Services (Routine) - Closed Specialty Diagnoses / Procedures Referred By Contepi t Referred To Contact Diagnoses Injury, other and unspecified, shoulder and upper arm Pain in joint, shoulder region Procedures MRI SHOULDER WO CONTRAST RIGHT Rm Mcmullen Sr., FNP [address] [place] [address] Phone: tel: fax: [facility] [address] [facility] [address] [place] [address] Phone: tel: fax: Referral ID Status Reason Start Date Expiration Date Visits Re quested Visits Authorized [id number] Closed 04/01/2012 05/01/2012 1 1 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 Encounter Details Date Type Department Care Team (Latest Contact Info) Description 04/01/2012 Ancillary Orders [facility] [address] [place] [id number] Rm Mcmullen Sr., FNP [address] [place] [address] Injury, other and unspecified, shoulder and upper arm; Pain in joint, shoulder region Social History Tobacco Use Types Packs/Day Years Used Date Smoking Tobacco: Never Assessed Sex and Gender Information Value Date Recorded Sex Assigned at Not on file Legal Sex Male 2:43 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 A chronic labral injury cannot be entirely excluded. CT arthrogram of the right shoulder may be considered as the next diagnostic algorithm of choice. No discrete tear is appreciated of the rotator cuff tendon. [facility] - uploaded from [employer] - Narrative 04/03/2012 2:34 PM RECY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 MRI of the right shoulder without contrast. Reason for study: Right shoulder pain. Standard technique was performed without contrast. Findings: The examination is, substantially, compromised due to artifact. Glenohumeral joint alignment is preserved. No substantial glenohumeral chondromalacia. A chronic labral injury cannot be entirely excluded. For further evaluation, air-contrast CT arthrogram may be considered as the next diagnostic algorithm of choice. The acromioclavicular joint demonstrates degenerative changes. The rotator cuff tendon demonstrates no substantial tendinopathy or peritendinitis. Biceps long tendon is within normal position. The biceps labral anchor appears to be intact. No evidence of a neoplastic process about the shoulder. No evidence of a macro fracture or bone contusion. Procedure Note Prabhu Ferraro MD - 04/03/2012 MRI of the right shoulder without contrast. Reason for study: Right shoulder pain. Standard technique was performed without contrast. Findings: The examination is, substantially, compromised due to artifact. Glenohumeral joint alignment is preserved. No substantial glenohumeral chondromalacia. A chronic labral injury cannot be entirely excluded. For further evaluation, air-contrast CT arthrogram may be considered as the next diagnostic algorithm of choice. The acromioclavicular joint demonstrates degenerative changes. The rotator cuff tendon demonstrates no substantial tendinopathy or peritendinitis. Biceps long tendon is within normal position. The biceps labral anchor appears to be intact. No evidence of a neoplastic process about the shoulder. No evidence of a macro fracture or bone contusion. IMPRESSION Impression: Examination is substantially compromised due to the artifact. A chronic labral injury cannot be entirely excluded. CT arthrogram of the right shoulder may be considered as the next diagnostic algorithm of choice. No discrete tear is appreciated of the rotator cuff tendon. [facility] - uploaded from [employer] - Transcriptions Sgf Scanning, [facility] - 06/10/2012 12:17 PM CST Rm Mcmullen Sr., STONECUTTER APPRENTICE HAND MR ORDERABLES E dited documented in this encounter Visit Diagnoses Diagnosis Injury, other and unspecified, shoulder and upper arm Pain in joint, shoulder region Injury, other and unspecified, shoulder and upper arm Pain in joint, shoulder region documented in this encounter Care Teams Supervisor Natural Gas Plant Relationship Specialty Start Date End Date Jean Carlos Yusuf MD [address] [phone] PCP - General Family Practice 09/25/19 documented as of this encounter
--- OUTSIDE RECORDS SUMMARY | 2025-01-09 15:39 | XMS_ITS | Encounter Summary ---
Author Organization [facility] Address [address] [place] [address] Care Team Providers Care Oil Pit Attendant Name Role Phone Jean Carlos Yusuf MD Primary Care Provider [phone] [phone] Encounter Details Date Type Department Care Team (Latest Contact Info) Description 04/03/1998 Outpatient Historical [facility] Family Medicine [place] [address] [address] David Rocha MD [address] 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
--- OUTSIDE RECORDS SUMMARY | 2025-01-09 15:39 | XMS_ITS | Encounter Summary ---
Author Organization [facility] Address [address] [place] [address] Care Team Providers Care Stove Polisher Name Role Phone Jean Carlos Yusuf MD Primary Care Provider [phone] [phone] Encounter Details Date Type Department Care Team (Latest Contact Info) Description 08/28/1998 Outpatient Historical [facility] Family Medicine [place] [address] [address] Dimitris Noriega DO NO ADDRESS ON FILE Allergic rhinitis, cause unspecified (Primary Dx) Social History Tobacco Use Types Packs/Day Years Used Date Smoking Tobacco: Never Assessed Sex and Gender Information Value Date Recorded Sex Assigned at Not on file 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
--- OUTSIDE RECORDS SUMMARY | 2025-01-09 15:39 | XMS_ITS | Encounter Summary ---
Author Organization [facility] [employer] [facility] Address [address] [place] [address] Care Team Providers Care Psychologists Name Role Phone Jean Carlos Yusuf MD Primary Care Provider [phone] [phone] Encounter Details Date Type Department Care Team (Late st Contact Info) Description 10/17/2020 [facility] [address] [place] [address] Pat Ramirez, SUPERVISOR INSPECTION ROOM [address] [place] [address] Left foot pain Social History Tobacco Use Types Packs/Day Years Used Date Smoking Tobacco: Every Day Cigarettes 0.5 9 Smokeless Tobacco: Former Chew Quit: 2014 Alcohol Use Standard Drinks/Week Comments Yes 0 (1 standard drink = 0.6 oz pur e alcohol) rare Sex and Gender Information Value Date Recorded Sex Assigned at Not on file 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 No / Unsure 10/17/2020 1:44 PM CDT documented as of this encounter Plan of Treatment Not on file documented as of this encounter Results * XR FOOT 3+ VW LEFT (10/17/2020 1:55 PM CDT) Anatomical Region Laterality Modality Ankle / Foot Computed Radiogr aphy 10/17/2020 1:57 PM CDT Impressions 10/17/2020 2:24 PM CDT IMPRESSION: No acute osseous abnormality is noted. Narrative 10/17/2020 2:24 PM CDT XR FOOT 3+ VW LEFT Reason For Exam: See Diagnosis. Diagnosis: Left foot pain. COMPARISON: None FINDINGS: No acute fracture, subluxation, dislocation, or destructive osseous lesion is seen. Joint spaces are preserved. Soft tissues are grossly unremarkable. Procedure Note Silverio Gamboa MD - 10/17/2020 XR FOOT 3+ VW LEFT Reason For Exam: See Diagnosis. Diagnosis: Left foot pain. COMPARISON: None FINDINGS: No acute fracture, subluxation, dislocation, or destructive osseous lesion is seen. Joint spaces are preserved. Soft tissues are grossly unremarkable. IMPRESSION: No acute osseous abnormality is noted. Pat Ramirez SUPERVISOR INSPECTION ROOM DIAGNOSTIC IMAGING ORDERABL ES Final Result documented in this encounter Visit Diagnoses Diagnosis Left foot pain Pain in limb Left foot pain Pain in limb documented in this encounter Care Teams Psychologists Relationship Specialty Start Date End Date Jean Carlos Yusuf MD [address] [phone] PCP - General Family Practice 09/25/19 documented as of this encounter
--- OUTSIDE RECORDS SUMMARY | 2025-01-09 15:39 | XMS_ITS | Encounter Summary ---
Author Organization [employer] [facility] Address [address] [place] [address] Care Team Providers Care Safe Deposit Box Rental Clerk Name Role Phone Jean Carlos Yusuf MD Primary Care Provider [phone] [phone] Encounter Details Date Type Department Care Team (Late st Contact Info) Description 08/07/2020 [facility] [address] [place] [address] Pat Ramirez, SHOE STITCHER ODD [address] [place] [address] Pain in right finger(s) Social History Tobacco Use Types Packs/Day Years Used Date Smoking Tobacco: Every Day Cigarettes 0.5 9 Smokeless Tobacco: Former Chew Quit: 2013 Alcohol Use Standard Drinks/Week Comments Yes 0 (1 standard drink = 0.6 oz pur e alcohol) rare Sex and Gender Information Value Date Recorded Sex Assigned at Not on file 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 No / Unsure 08/07/2020 4:51 PM CDT documented as of this encounter Plan of Treatment Not on file documented as of this encounter Results * XR FINGER(S) RIGHT (08/07/2020 5:13 PM CDT) Anatomical Region Laterality Modality Wrist / Hand Computed Radiogr aphy 08/07/2020 5:13 PM CDT Impressions 08/07/2020 10:40 PM CDT IMPRESSION: Please see below. Exam: XR FINGER(S) RIGHT Date/Time of Exam: 08/07/2020 5:13 PM REASON FOR EXAM: See Diagnosis. DIAGNOSIS: Pain in right finger(s). Findings: There is an oblique fracture through the proximal fourth phalanx. The remaining osseous structures are intact. Narrative Procedure Note Baldemar Dillon MD - 08/07/2020 IMPRESSION: Please see below. Exam: XR FINGER(S) RIGHT Date/Time of Exam: 08/07/2020 5:13 PM REASON FOR EXAM: See Diagnosis. DIAGNOSIS: Pain in right finger(s). Findings: There is an oblique fracture through the proximal fourth phalanx. The remaining osseous structures are intact. Pat Ramirez SHOE STITCHER ODD DIAGNOSTIC IMAGING ORDERABL ES Final Result documented in this encounter Visit Diagnoses Diagnosis Pain in right finger(s) Pain in right finger(s) documented in this encounter Care Teams Safe Deposit Box Rental Clerk Relationship Specialty Start Date End Date Jean Carlos Yusuf MD [address] [phone] PCP - General Family Practice 09/25/19 documented as of this encounter
--- OUTSIDE RECORDS SUMMARY | 2025-01-09 15:39 | XMS_ITS | Encounter Summary ---
Author Organization [facility] Address [address] [place] [address] Care Team Providers Care Central Office Repairer Name Role Phone Jean Carlos Yusuf MD Primary Care Provider [phone] [phone] Encounter Details Date Type Department Care Team (Latest Contact Info) Description 10/25/1998 Outpatient Historical [facility] Family Medicine [place] [address] [address] Britt Dozier NO ADDRESS ON FILE Unspecified otitis media (Primary Dx); Acute bronchitis; Unspecified asthma(493.90) Social History Tobacco Use Types Packs/Day Years Used Date Smoking Tobacco: Never Assessed Sex and Gender Information Value Date Recorded Sex Assigned at Not on file 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
--- OUTSIDE RECORDS SUMMARY | 2025-01-09 15:39 | XMS_ITS | Encounter Summary ---
Author Organization [facility] Address [address] [place] [address] Care Team Providers Care Director Of Cath Lab Name Role Phone Jean Carlos Ysuuf MD Primary Care Provider [phone] [phone] Encounter Details Date Type Department Care Team (Latest Contact Info) Description 09/29/1998 Outpatient Historical [facility] Family Medicine [place] [address] [address] Dimitris Noriega DO NO ADDRESS ON FILE Dermatitis due to plant (Primary Dx) Social History Tobacco Use Types Packs/Day Years Used Date Smoking Tobacco: Never Assessed Sex and Gender Information Value Date Recorded Sex Assigned at Not on file Legal Sex Male 2:43 AM HAND SCUDDER Gender Identity Not on file Sexual Orientation Not on file documented as of this encounter Plan of Treatment Not on file documented as of this encounter Visit Diagnoses Diagnosis Dermatitis due to plant- Primary Contact dermatitis and other eczema due to plants (except food) documented in this encounter Care Teams Director Of Cath Lab Relationship Specialty Start Date End Date Jean Carlos Yusuf MD [address] [address] PCP - General Family Practice 09/25/19 documented as of this encounter
--- OUTSIDE RECORDS SUMMARY | 2025-01-09 15:39 | XMS_ITS | Encounter Summary ---
Author Organization [facility] Address [address] [place] [address] Care Team Providers Care Welding Machine Operator Friction Name Role Phone Jean Carlos Yusuf MD Primary Care Provider +1 [phone] Encounter Details Date Type Department Care Team (Late st Contact Info) Description 10/19/2018 Lab Requisition [facility] [place] [address] [place] [phone] Elodia Brown, [facility] [address] [place] [address] Social History Tobacco Use Types Packs/Day Years Used Date Smoking Tobacco: Former Cigarettes Q uit: 05/31/2016 Alcohol Use Standard Drinks/Week Comments No 0 (1 standard drink = 0.6 oz pur e alcohol) Sex and Gender Information Value Date Recorded Sex Assigned at Not on file Legal 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:43 AM VORTEX OPERATOR Gender Identity Not on file Sexual Orientation Not on file Occupation Industry Job Start Date Job End Date Not on file Not on file Not on file Not on file documented as of this encounter Plan of Treatment Not on file documented as of this encounter Procedures Procedure Name Priority Date/Time Associated Diagnosis Comments CBC WITH DIFFERENTIAL Routine 10/19/2018 8:30 PM CDT TSH Routine 10/19/2018 8:30 PM CDT HEMOGLOBIN A1C Routine 10/19/2018 8:30 PM CDT LIPID PANEL Routine 10/19/2018 8:30 PM CDT COMPREHENSIVE METABOLIC PANEL Routine 10/19/2018 8:30 PM CDT documented in this encounter Results * HEMOGLOBIN A1C (10/19/2018 8:30 PM CDT) HEMOGLOBIN A1C 5.1 See comment % 10/19/2018 11:00 PM CDT [facility] EST. AVG GLUCOSE, A1C 100 mg/dL 10/19/2018 11:00 PM CDT [facility] Blood Collection / Unknown 10/19/2018 8:30 PM CDT 10/19/2018 10:12 PM CDT Narrative [facility] - 10/19/2018 11:00 PM CDT HGB A1C INTERPRETATION NORMAL: <5.7% PRE-DIABETES: 5.7 - 6.4% DIABETES: 6.5% OR GREATER us Elodia Brown INTERPRETATIVE DANCER CHEMISTRY ORDERABLE S Final Result [facility] CLIA # [id number] [address] [place] [address] * COMPREHENSIVE METABOLIC PANEL (10/19/2018 8:30 PM CDT) SODIUM 139 136 - 145 mmol/L 10/19/2018 10:53 PM CDT [facility] POTASSIUM 4.0 3.5 - 5.1 mmol/L 10/19/2018 10:53 PM CDT [facility] CHLORIDE 102 98 - 107 mmol/L 10/19/2018 10:53 PM CDT [facility] CO2 23 22 - 29 mmol/L 10/19/2018 10:53 PM CDT [facility] CALCIUM 9.9 8.6 - 10.0 mg/dL 10/19/2018 10:53 PM CDT [facility] BUN 10 6 - 20 mg/dL 10/19/2018 10:53 PM [facility] CREATININE 0.88 0.67 - 1.17 mg/dL 10/19/2018 10:53 PM [facility] GLUCOSE 78 74 - 99 mg/dL 10/19/2018 10:53 PM [facility] TOTAL PROTEIN 7.0 6.6 - 8.7 g/dL 10/19/2018 10:53 PM [facility] ALBUMIN 4.5 3.5 - 5.2 g/dL 10/19/2018 10:53 PM [facility] BILIRUBIN TOTAL 0.5 0.0 - 1.2 mg/dL 10/19/2018 10:53 PM [facility] ALKALINE PHOSPHATASE 66 40 - 129 U/L 10/19/2018 10:53 PM [facility] AST 24 10 - 50 U/L 10/19/2018 10:53 PM [facility] ALT 23 10 - 50 U/L 10/19/2018 10:53 PM [facility] GFR >60 >=60 mL/min/1.7 3 sq meter 10/19/2018 10:53 PM [facility] Comment: eGFR has not been validated for use in the elderly (> 70 years of age), women, patients with serious co-morbid conditions, or persons with extremes of body size or muscle mass and should also be interpreted with caution in patients with acute kidney failure, dialysis dependent patients, patients reporting exceptional dietary intake (e.g. vegetarian diet, high protein diets, creatine supplementation), and patients with severe liver disease. Based on National Kidney Disease Education Program If patient is , please refer to the GFR result. GFR, >60 >=60 mL/min/1.7 3 sq meter 10/19/2018 10:53 PM [facility] ANION GAP 14 12 - 20 mmol/L 10/19/2018 10:53 PM [facility] Blood Collection / Unknown 10/19/2018 8:30 PM CDT 10/19/2018 10:22 PM CDT Elodia Brown INTERPRETATIVE DANCER CHEMISTRY ORDERABLE S Final Result [facility] CLIA # [id number] [address] [place] [address] * (ABNORMAL) CBC WITH DIFFERENTIAL (10/19/2018 8:30 PM CDT) WBC 10.7(H) 4.2 - 9.1 K/uL 10/19/2018 10:18 PM CDT [facility] RBC 4.96 4.63 - 6.08 M/uL 10/19/2018 10:18 PM T [facility] HEMOGLOBIN 15.2 13.7 - 17.5 g/dL 10/19/2018 10:18 PM [facility] HEMATOCRIT 43.7 40.1 - 51.0 % 10/19/2018 10:18 PM [facility] MCV 88.1 79.0 - 92.2 fL 10/19/2018 10:18 PM T [facility] MCH 30.6 25.7 - 32.2 pg 10/19/2018 10:18 PM [facility] MCHC 34.8 32.3 - 36.5 g/dL 10/19/2018 10:18 PM [facility] RDW 13.5 11.0 - 14.5 % 10/19/2018 10:18 PM [facility] RDW-STDEV 43.2 36.9 - 56.9 fL 10/19/2018 10:18 PM T [facility] PLATELETS 203 130 - 400 K/uL 10/19/2018 10:18 PM [facility] MPV 11.9 10.0 - 14.8 fL 10/19/2018 10:18 PM [facility] NEUTROPHILS 59 34 - 68 % 10/19/2018 10:18 PM [facility] LYMPHOCYTES 29 22 - 53 % 10/19/2018 10:18 PM [facility] 9 5 - 12 % 10/19/2018 10:18 PM CDT [facility] EOSINOPHILS 2 1 - 7 % 10/19/2018 10:18 PM CDT [facility] BASOPHILS 0 0 - 1 % 10/19/2018 10:18 PM CDT [facility] IMMATURE GRANULOCYTES 0 % 10/19/2018 10:18 PM CDT [facility] NEUTROPHIL ABSOLUTE 6.33(H) 1.78 - 5.38 K/uL 10/19/2018 10:18 PM CDT [facility] LYMPHOCYTE ABSOLUTE 3.06 1.20 - 3.40 K/uL 10/19/2018 10:18 PM CDT [facility] MONOCYTE ABSOLUTE 0.97(H) 0.30 - 0.82 K/uL 10/19/2018 10:18 PM CDT [facility] EOSINOPHIL ABSOLUTE 0.25 0.04 - 0.54 K/uL 10/19/2018 10:18 PM CDT [facility] BASOPHILS ABSOLUTE 0.03 0.01 - 0.08 K/uL 10/19/2018 10:18 PM CDT [facility] IMMATURE GRANULOCYTES ABSOLUTE 0.02 K/uL 10/19/2018 10:18 PM CDT [facility] Blood Collection / Unknown 10/19/2018 8:30 PM CDT 10/19/2018 10:12 PM CDT us Elodia LOZANOP HEMATOLOGY ORDERABL ES Final Result [facility] CLIA # [id number] [address] [place] [address] * TSH (10/19/2018 8:30 PM CDT) TSH 2.04 0.27 - 4.20 uIU/mL 10/19/2018 10:53 PM CDT [facility] Blood Collection / Unknown 10/19/2018 8:30 PM CDT 10/19/2018 10:22 PM CDT us Elodia LOZANOP CHEMISTRY ORDERABLE S Final Result [facility] CLIA # [id number] [address] [place] [address] * (ABNORMAL) LIPID PANEL (10/19/2018 8:30 PM CDT) CHOLESTEROL 146 <200 mg/dL 10/19/2018 10:53 PM CDT [facility] TRIGLYCERIDE 111 <150 mg/dL 10/19/2018 10:53 PM CDT [facility] HDL 39(L) 40 - 59 mg/dL 10/19/2018 10:53 PM T [facility] LDL CALCULATED 85 <100 mg/dL 10/19/2018 10:53 PM T [facility] NON-HDL CHOLESTEROL 107 <130 mg/dL 10/19/2018 10:53 PM T [facility] Blood Collection / Unknown 10/19/2018 8:30 PM CDT 10/19/2018 10:22 PM CDT Narrative [facility] - 10/19/2018 10:53 PM CDT TOTAL CHOLESTEROL mg/dL Desirable <200 Borderline high 200-239 High >=240 TRIGLYCERIDES mg/dL Normal <150 Borderline high 150-199 High 200-499 Very high >=500 HDL CHOLESTEROL mg/dL Low <40 Normal 40-59 Desirable >=60 NON HDL CHOLESTEROL mg/dL Optimal <130 Near Optimal 130-159 Borderline High 160-189 Very High >=190 Calculated LDL mg/dL Optimal <100 Near Optimal 100-129 Borderline High 130-159 High 160-189 Very High >=190 ATPIII Guidelines Reference Ranges for Lipid Panels (NCEP/AMA) Elodia LOZANOP CHEMISTRY ORDERABLE S Final Result [facility] # [id number] [address] [address] documented in this encounter Visit Diagnoses Not on filedocumented in this encounter Care Teams Welding Machine Operator Friction Relationship Specialty Start Date End Date Jean Carlos Yusuf MD [address] [address] PCP - General Family Practice 09/25/19 documented as of this encounter
--- OUTSIDE RECORDS SUMMARY | 2025-01-09 15:39 | XMS_ITS | Encounter Summary ---
Author Organization [facility] Address [address] [place] [address] Care Team Providers Care Telecommunications Administrator Name Role Phone Jean Carlos Yusuf MD Primary Care Provider [phone] Encounter Details Date Type Department Care Team (Latest Contact Info) Description 11/29/1998 Outpatient Historical [facility] Family Medicine [place] [address] [address] Britt Dozier NO ADDRESS ON FILE Routine child health exam (Primary Dx) Social History Tobacco Use Types Packs/Day Years Used Date Smoking Tobacco: Never Assessed Sex and Gender Information Value Date Recorded Sex Assigned at Not on file 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
--- OUTSIDE RECORDS SUMMARY | 2025-01-09 15:39 | XMS_ITS | Clinical Summary ---
Author Organization [facility] Address [address] [place] [address] Care Team Providers Care Dev Technical Mgr Name Role Phone Jean Carlos Yusuf MD Primary Care Provider [phone] Allergies No known active allergies Medications albuterol HFA 90 mcg inhaler Take 2 Puffs by inhalation every 6 hours as needed for Shortness of Breath or Wheezing (Cough). 8.5 Gram 7 Active naproxen sodium (ALEVE) 220 mg Tablet Take 220 mg by mouth every 4 hours as needed for Pain, Moderate. Active famotidine (PEPCID) 20 mg tablet Take 1 Tablet (20 mg) by mouth 2 times daily. 60 Tablet 1 Active metoclopramide HCl (REGLAN) 10 mg tablet Take 1 Tablet (10 mg) by mouth every 6 hours as needed for Nausea/Emesis. 10 Tablet 1 Active Active Problems Problem Noted Date Diagnosed Date Cigarette dependence 01/04/2016 Pneumonia 04/06/2012 Asthma with acute exacerbation 04/06/2012 Immunizations Immunization Administration Dates Next Due (M-M-R II/PRIORIX)(12 MO UP) MEASLES, MUMPS AND RUBELLA VIRUS VACCINE, 0.5 ML IM/SUBCUT 06/20/1999,10/10/1995 Dt Dtp Dtap Vaccine 06/20/1999, 6,09/02/1995,1994,1994 HIB, Unspecified Formulation 04/09/1996, 09/02/1995,01/21/1995,1994 Hepatitis B Vaccine 09/02/1995,01/21/1995,1994 IPV/OPV 06/20/1999, 6,01/21/1995,1994 Influenza Seasonal Unspecifi ed Formulation IM 12/28/2018 Family History Medical History Relation Name Comments Healthy Brother Healthy Father Diabetes Maternal Grandfather Healthy Mother Heart Disease Paternal Grandfather Diabetes Paternal Grandmother Lung Cancer Paternal Grandmother Healthy Sister Relation Name Status Comments Brother Alive Father Alive Maternal Grandfather Mother Alive Paternal Grandfather Paternal Grandmother Sister Alive Social History Tobacco Use Types Packs/Day Years Used Date Smoking Tobacco: Every Day Cigarettes 0.5 9 Smokeless Tobacco: Former Chew Quit: 2013 Alcohol Use Standard Drinks/Week Comments Yes 0 (1 standard drink = 0.6 oz pur e alcohol) rare Sex and Gender Information Value Date Recorded Sex Assigned at Not on file Legal Sex Male 2:43 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 Gender Identity Not on file Sexual Orientation Not on file Occupation Industry Job Start Date Job End Date Not on file Not on file Not on file Not on file Last Filed Vital Signs Vital Sign Reading Time Taken Comments Blood Pressure 126/74 06/30/2020 9:38 PM REEL STRIPPER Pulse 83 06/30/2020 7:24 PM REEL STRIPPER Temperature 36.6 C (97.8 F) 06/30/2020 7:24 PM REEL STRIPPER Respiratory Rate 18 06/30/2020 9:38 PM REEL STRIPPER Oxygen Saturation 98% 06/30/2020 9:38 PM REEL STRIPPER Inhaled Oxygen Concentration - - Weight 99.8 kg (220 lb) 06/30/2020 7:24 PM REEL STRIPPER Height 167.6 cm (5' 6 ) 06/30/2020 7:24 PM REEL STRIPPER Body Mass Index 35.51 06/30/2020 7:24 PM REEL STRIPPER Plan of Treatment Health Maintenance Due Date Last Done Comments DTAP/TDAP/TD VACCINES (6 - Tdap) 2005 06/20/1999, 03/30/1996, 09/02/1995, Additional history exists Preventative Visit-Managed Medicaid 2013 HPV VACCINES (1 - 3-dose SCD M series) 2021 INFLUENZA VACCINE (#1) 2024 12/28/2018 HEPATITIS B VACCINES Completed 09/02/1995, 01/21/1995, 1994 Insurance [facility] MEDICAID RX INFOCROSSING Medicaid Advance Directives For more information, please contact: [phone] * Full Code (Latest Code Status on File) Date Activated Date Inactivated Comments 12/10/2019 8:35 AM 12/10/2019 4:25 PM * Full Code Date Activated Date Inactivated Comments 04/08/2012 2:52 PM 04/10/2012 9:21 PM * Full Code Date Activated Date Inactivated Comments 04/06/2012 5:56 PM 04/08/2012 2:52 PM Care Teams Dev Technical Mgr Relationship Specialty Start Date End Date Jean Carlos Yusuf MD [address] [address] PCP - General Family Practice 09/25/19
--- OUTSIDE RECORDS SUMMARY | 2025-01-09 15:39 | XMS_ITS | Encounter Summary ---
Author Organization [facility] Address [address] [place] [address] Care Team Providers Care Bad Cloth Checker Name Role Phone Jean Carlos Yusuf MD Primary Care Provider [phone] Encounter Details Date Type Department Care Team (Latest Contact Info) Description 09/09/2000 Outpatient Historical [facility] Medicine [place] [address] [address] David Rocha MD [address] [facility] [address] [place] [address] Other conjunctivitis (Primary Dx); Allergy, unspecified not elsewhere classified Social History Tobacco Use Types Packs/Day Years Used Date Smoking Tobacco: Never Assessed Sex and Gender Information Value Date Recorded Sex Assigned at Not on file Legal Sex Male 2:43 AM TAKE AWAY MAN Gender Identity Not on file Sexual Orientation Not on file documented as of this encounter Plan of Treatment Not on file documented as of this encounter Visit Diagnoses Diagnosis Other conjunctivitis- Primary Allergy, unspecified not elsewhere classified documented in this encounter Care Teams Bad Cloth Checker Relationship Specialty Start Date End Date Jean Carlos Yusuf MD [address] [address] PCP - General Family Practice 09/25/19 documented as of this encounter
--- OUTSIDE RECORDS SUMMARY | 2025-01-09 15:39 | XMS_ITS | Encounter Summary ---
Author Organization [facility] Address [address] [place] [address] Care Team Providers Care Type Bar And Segment Assembler Name Role Phone Jean Carlos Yusuf MD Primary Care Provider [phone] Encounter Details Date Type Department Care Team (Latest Contact Info) Description 07/18/2000 Outpatient Historical [facility] Family Medicine [place] [address] [address] Dimitris Noriega DO NO ADDRESS ON FILE Acute upper respiratory infections of unspecified site (Primary Dx) Social History Tobacco Use Types Packs/Day Years Used Date Smoking Tobacco: Never Assessed Sex and Gender Information Value Date Recorded Sex Assigned at Not on file Legal Sex Male 2:43 AM LIBERAL ARTS DEAN Gender Identity Not on file Sexual Orientation Not on file documented as of this encounter Plan of Treatment Not on file documented as of this encounter Visit Diagnoses Diagnosis Acute upper respiratory infections of unspecified site- Primary documented in this encounter Care Teams Type Bar And Segment Assembler Relationship Specialty Start Date End Date Jean Carlos Yusuf MD [address] [address] PCP - General Family Practice 09/25/19 documented as of this encounter
--- OUTSIDE RECORDS SUMMARY | 2025-01-09 15:39 | XMS_ITS | Encounter Summary ---
Author Organization [facility] Address [address] [place] [address] Care Team Providers Care Charge Aide Name Role Phone Jean Carlos Yusuf MD Primary Care Provider [phone] Encounter Details Date Type Department Care Team (Latest Contact Info) Description 03/04/2000 Outpatient Historical [facility] Family Medicine [place] [address] [address] David Rocha MD [address] [facility] [address] [place] [address] Sprain and strain of other specified sites of elbow and forearm (Primary Dx) Social History Tobacco Use Types Packs/Day Years Used Date Smoking Tobacco: Never Assessed Sex and Gender Information Value Date Recorded Sex Assigned at Not on file 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
--- OUTSIDE RECORDS SUMMARY | 2025-01-09 15:40 | XMS_ITS | Clinical Summary ---
Author Organization [facility] Address [address] [place] [address] Care Team Providers Care Buyer Tobacco Head Name Role Phone Jean Carlos Yusuf MD Primary Care Provider [phone] Allergies Active Allergy Reactions Criticality Noted Date Comments Latex Hives,Rash High 07/21/2021 Levetiracetam Other (See Comments) 11/04/2022 Psychiatric symptoms, suicide attempt Topiramate Other (See Comments) 11/04/2022 Psychiatric symptoms, suicide attempt Medications prazosin (MINIPRESS) 1 mg capsule TAKE TWO CAPSULES BY MOUTH at bedtime 60 Capsule 2 3 Active Additional Information Patient not taking.Reported on 03/28/2023 albuterol sulfate HFA 90 mcg/actuation aerosol inhalerIndicatio ns:Mild intermittent asthma with acute exacerbation Take 2 Puffs by inhalation every 6 hours as needed for Shortness of Breath. 8 Gram 2 3 Active predniSONE (DELTASONE) 10 mg tabletIndication s:Upper respiratory tract infection, unspecified type Take 4 tablets for 3 days then 3 tablets for 3 days then 2 tablets for 3 days and 1 tablet for 3 days 30 Tablet 3 Active carBAMazepine (TEGretol) 200 mg tablet Take 1 Tablet (200 mg) by mouth 2 times daily. 60 Tablet 2 4 Active sertraline (ZOLOFT) 100 mg tablet Take 1 tablet by mouth once daily 30 Tablet 4 Active Active Problems Problem Noted Date Diagnosed Date Post traumatic stress disorder (PTSD) 11/14/2022 Family history of diabetes mellitus 06/21/2022 Morbid obesity with body mass index of 40.0-49.9 06/21/2022 Seizure 05/28/2022 Cigarette dependence 01/04/2016 Asthma with acute exacerbation 04/06/2012 Resolved Problems Problem Noted Date Diagnosed Date Resolved Date Pneumonia 04/06/2012 06/21/2022 Encounters Date Type Department Care Team Description 12/28/2024 External Device Data ST[facility] ABSTRACTION Provider, Abstract 12/14/2024 External Device Data [facility] ABSTRACTION Provider, Abstract 12/01/2024 External Device Data [facility] ABSTRACTION Provider, Abstract 10/13/2024 External Device Data [facility] ABSTRACTION Provider, Abstract 10/12/2024 External Device Data [facility] ABSTRACTION Provider, Abstract from Last 3 Months Immunizations Immunization Administration Dates Next Due (ADACEL/BOOSTRIX)(10 YR UP) TDAP VACCINE, 0.5ML, IM 02/26/2022 (M-M-R II/PRIORIX)(12 MO UP) MEASLES, MUMPS AND [...] Used Date Smoking Tobacco: Every Day Cigarettes Smokeless Tobacco: Former Quit: 04/28/2013 Tobacco Cessation:Ready to Q uit: No; Counseling Given: Yes Alcohol Use Standard Drinks/Week Comments Not Currently 0 (1 standard drink = 0.6 oz pur e alcohol) Sex and Gender Information Value Date Recorded Sex Assigned at Not on file Legal Sex Male 9:44 AM LOCOMOTIVE CRANE ENGINEER Gender Identity Not on file Sexual Orientation Not on file Last Filed Vital Signs Vital Sign Reading Time Taken Comments Blood Pressure 133/82 03/28/2023 9:33 AM LOCOMOTIVE CRANE ENGINEER Pulse 70 03/28/2023 9:33 AM LOCOMOTIVE CRANE ENGINEER Temperature 36.6 C (97.9 F) 03/28/2023 9:33 AM LOCOMOTIVE CRANE ENGINEER Respiratory Rate 18 03/28/2023 9:33 AM LOCOMOTIVE CRANE ENGINEER Oxygen Saturation 98% 03/28/2023 9:33 AM LOCOMOTIVE CRANE ENGINEER Inhaled Oxygen Concentration - - Weight 131.2 kg (289 lb 3.2 oz) 03/28/2023 9:33 AM LOCOMOTIVE CRANE ENGINEER Height 167.6 cm (5' 6 ) 03/28/2023 9:33 AM LOCOMOTIVE CRANE ENGINEER Body Mass Index 46.68 03/28/2023 9:33 AM LOCOMOTIVE CRANE ENGINEER Plan of Treatment Health Maintenance Due Date Last Done Comments Preventative Visit-Managed Medicaid 2013 HPV VACCINES (1 - 3-dose SCD M series) 2021 INFLUENZA VACCINE (#1) 2024 12/28/2018 DTAP/TDAP/TD VACCINES (8 - T d or Tdap) 02/27/2032 02/26/2022, 08/30/2021, 06/20/1999, Additional history exists HEPATITIS B VACCINES Completed 09/02/1995, 01/21/1995, 1994 Goals Goal Patient Goal Type Associated Problems Recent Progress Patient-Stated? Author Short-Term General Yes Nellie Ken Note: 12/04/2022 Today's SMART Goal: Patient will utilize positive self talk each day by time of next contact. Progress: Ongoing 01/30/2023 Today's SMART Goal: Patient will utilize 1 new coping skill by time of next contact. Progress: Ongoing [place] [address] [place] [address] MEDICAID * Guarantor: RENE PHELAN Account Type Relation to Patient Date of Phone Billing Address Personal/Family [id number] [place] [address] RX INFOCROSSING Medicaid Care Teams Buyer Tobacco Head Relationship Specialty Start Date End Date Jean Carlos Yusuf MD [address] [facility] [address] [place] [id number] PCP - General Family Practice 06/21/22
[2025-01-09 15:42] VITALS: BP 149/83; PULSE 96; RESP 17; TEMP 36.7; O2SAT 99; BMI 41.9
--- NOTE | 2025-01-09 16:09 | USR_ITS ---
PROCEDURE INFORMATION: Exam: US Right Limited Joint or Other Non-Vascular Extremity Structure Exam date and time: 01/09/2025 5:09 PM Age: 29 years old Clinical indication: Mass or lump; Arm, upper; Right; Additional info: Right axillary region, mass TECHNIQUE: Imaging protocol: US right limited joint or other nonvascular extremity structure. Real-time ultrasound with image documentation. Exam focused on the area of clinical interest. Total images: 3 COMPARISON: No relevant prior studies available. FINDINGS: Soft tissues: Unremarkable. No loculated collections. Other findings: Right axillary ill-defined hypoechoic mass or fluid collection measuring 7.5 x 5.1 x 7.4 cm diameter demonstrating no well-defined wall. Right axillary prominent lymph nodes with thickening of lymph node mantle characteristic of reactive lymphadenopathy. US/US soft tissue/extremity [id number] IMPRESSION: 1. Right axillary poorly circumscribed mass or complex cystic fluid collection possibly disorganized fluid of unknown etiology, suspicious for although without specific ultrasound manifestations to confirm abscess. 2. Right axillary prominent lymph nodes with thickening of lymph node mantle characteristic of reactive lymphadenopathy. COMMENTS: Additional cross-sectional imaging may be useful for further characterization.
[2025-01-09] MEDS: HYDROcodone-acetaminophen 7.5-325 mg Tablet 1 TAB PO (16:30)
[2025-01-09 16:35] LABS: Hematocrit 42.2 % (37-53); Hemoglobin 14.40 g/dL (11.27-16.99); Mean Corpuscular HGB Conc 34.1 g/dL (30-55); Mean Corpuscular Hemoglobin 29.8 pg (27-33); Mean Corpuscular Volume 87.4 fl (82-101); Nucleated Red Blood Cells % 0 %; Platelet Count 342 10^3/cmm (157-399); Red Blood Count 4.83 10^6/uL (3.85-5.65); White Blood Count 10.79 10^3/uL (3.29-11.43)
[2025-01-09 16:50] LABS: Alanine Aminotransferase 16 U/L (0-41); Albumin Level 4.2 g/dL (3.5-5.2); Alkaline Phosphatase 102 U/L (40-130); Anion Gap 16.6 (5-19); Aspartate Amino Transferase 14 U/L (0-40); Blood Urea Nitrogen 8 mg/dL (6-20); Calcium 9.5 mg/dL (8.5-10.5); Carbon Dioxide 23 mmol/L (22-29); Chloride 99 mmol/L (98-107); Creatinine Clr Calc Pharmacy 163.1926; Globulin 3.6 g/dL (1.3-4.6); Glucose 173 mg/dL (65-115); Osmolality Calculated 282 mOsm/kg (285-295); Potassium 3.6 mmol/L (3.5-5.1); Sodium 135 mmol/L (136-145); Total Protein 7.8 g/dL (6.6-8.7)
--- NOTE | 2025-01-09 16:51 | ED_ITS ---
Documented by User: TACHO Hansen 01/10/25 09:02 HPI - Extremity Problem 2 General: Chief complaint: Extremity Injury, Upper Stated complaint: right shoulder pain has a big knot Time Seen by Provider: 01/09/25 15:56 Source: patient Mode of arrival: ambulatory Limitations: no limitations History of Present Illness: Patient is a 29-year-old male who presents the emergency department complaining of right shoulder pain for the past few weeks. States that there is a large knot in the right armpit region, and has causing difficulty at work as he is required to lift things and move things frequently. States that he was prescribed antibiotics recently but that this has not helped his condition. He is not reporting any associated symptoms whatsoever, specifically no fever, recent cat scratch or cat bite, significant weight loss, trouble breathing, nausea/vomiting, or any other signs or symptoms of illness. MD Complaint: other (Right shoulder pain, swelling in right armpit) Onset (ago): week(s) (3) Pain Consistency: constant Location: right and upper extremity Radiation: none Exacerbating factors: range of motion and exertion Associated symptoms: Deny chest pain, fever(s) or rash Related Data Home Medications ?Medication ?Instructions ?Recorded ?Confirmed albuterol sulfate 90 mcg/actuation 2 puff inhalation Q 6H PRN 09/29/22 10/17/22 aerosol inhaler (Ventolin HFA) Shortness Of Breath levetiracetam 1,000 mg tablet 1,500 mg PO BID 09/29/22 09/29/22 rizatriptan 10 mg tablet See Rx Instructions .Route . COMPLEX 09/29/22 09/29/22 topiramate 50 mg tablet 100 mg PO BID 09/29/2209/29 Previous Rx's ?Medication ?Instructions ?Recorded carbamazepine 200 mg tablet 200 mg PO BID #60 tabs 11/17 prazosin 1 mg capsule 2 mg (2 x 1 mg) PO BEDTIME 3 0 days 10/02/22 #60 caps sertraline 100 mg tablet 100 mg PO DAILY #30 tabs 11/17 amoxicillin 875 mg-potassium 1 tab PO BID #14 tabs clavulanate 125 mg tablet doxycycline monohydrate 100 mg 100 mg PO Q12H 10 days #20 caps 01/09/25 capsule hydrocodone 5 mg-acetaminophen 325 1 tab PO Q6H PRN pa in #14 tabs 01/09/25 mg tablet Allergies Allergy/AdvReac Type Severity Reaction Status Date / Time latex Allergy Intermediate Rash Verified 09/29/22 16:15 Review of Systems 2 General: Reports: 10 or more systems reviewed and unremarkable except in HPI and below Const: Denies: fever(s) or chills Card: Denies: chest pain Resp: Denies: dyspnea or productive cough GI: Denies: abdominal pain, nausea, vomiting or diarrhea : Denies: flank pain Musc: Reports: joint pain (Right shoulder); Denies: neck pain, back pain, extremity pain, extremity swelling, joint swelling, joint redness, joint warmth, limited range of motion or muscle weakness Skin/Breast: Reports: skin swelling (Right axillary region); Denies: rash Neuro: Denies: headache(s), numbness in extremities or weakness in extremities PFSH ED 2 PFSH: Medical History Generalized anxiety disorder Major depressive disorder, recurrent severe without psychotic features Surgical History S/P excision of ganglion cyst History of rotator cuff surgery History of tonsillectomy and adenoidectomy Family History Mother Diabetes Grandfather Diabetes Social History Smoking and tobacco/nicotine status: current every day tobacco/nicotine user cigarettes Packs smoked per day: 1 Years cigarettes smoked: 8 Quit status (tobacco/nicotine): has tried quititng Number of times tried to quit tobacco: 4 Second hand smoke exposure: Yes Alcohol intake: never Substance/Drug Use: never Adopted: No Caregiver/support person: No Lives independently: No Household members: spouse and children Current occupational status: employed Sexually active: Yes Do you think of yourself as: Straight/Heterosexual Current gender identity: Male Physical Exam 2 Const: COMMON NORMALS: no acute distress, patient oriented x3, no limitations, healthy appearing, alert and well nourished HENMT: COMMON NORMALS: normocephalic and atraumatic HEAD & SCALP: n ormocephalic and atraumatic Neck/C-Spine: COMMON NORMALS: full ROM, supple and no meningeal signs Resp: COMMON NORMALS: normal respiratory effort, No use of accessory muscles and clear to auscultation bilaterally AUSCULTATION: clear to auscultation bilaterally Cardio: COMMON NORMALS: regular rate and regular rhythm RATE: regular rate RHYTHM: regular rhythm Extremity: COMMON NORMALS: full ROM, capillary refill normal, no joint enlargement and no clubbing, cyanosis or edema NARRATIVE EXTREMITY EXAM: Masslike swelling to right axillary region, tender to palpation but no overlying skin changes. No palpable fluctuance. No red streaking. Neuro: COMMON NORMALS: patient oriented x3, moves all extremities, no focal motor deficits and no sensory deficits noted SENSORIUM/ORIENTATION: Yes alert MENINGEAL SIGNS: Yes no meningeal signs Skin: COMMON NORMALS: no rashes or lesions noted GENERAL SKIN EXAM: no rashes or lesions noted Course 2 Vital Signs: Vital signs: Vital Signs Temperature 98.1 F 01/09/25 15:42 Pulse Rate 96 01/09/25 15:42 Respiratory Rate 17 01/09/25 15:42 Blood Pressure 149/83 01/09/25 15:42 Pulse Oximetry 99 01/09/25 15:42 Oxygen Delivery Me thod Room Air 01/09/25 15:42 MDM - Extremity (Nontraumatic) Medical Decision Making This patient presenting for swelling under the right arm, and general right shoulder pain that he states has been affecting him at work. On arrival there is tenderness to palpation axillary region with there is palpable masslike structure, but he has no other systemic symptoms to report or concerning exam findings. Specifically does not report any recent cat scratch, no significant weight loss, and no fevers. He has also been taking antibiotics, has been taking Bactrim as prescribed by urgent care. Labs were obtained, no leukocytosis, ESR of 32 and CRP of 19. Soft tissue ultrasound of the right axillary region shows questionable signs of abscess though recommending further imaging. At this time CT chest with contrast is ordered and care of this patient will be transferred to Nellie Moser PA-C. DD CT scan showing a right axillary bilobulated mass or masses likely representing infectious/inflammatory adenitis versus manifestations of neoplastic primary or secondary axillary lymphadenopathy. Spoke with Dr. Lopez. Plan will be for patient to follow-up with general surgery for probable biopsy. Will adjust his antibiotic coverage to Doxycycline/Augmentin and give him something to help with discomfort. Return ED precautions discussed. ES Lab Data 01/09/25 16:24 01/09/25 16:24 Radiology Impressions Soft Tissue Ultrasound 01/09/25 16:09 IMPRESSION: 1. Right axillary poorly circumscribed mass or complex cystic fluid collection possibly disorganized fluid of unknown etiology, suspicious for although without specific ultrasound manifestations to confirm abscess. 2. Right axillary prominent lymph nodes with thickening of lymph node mantle characteristic of reactive lymphadenopathy. COMMENTS: Additional cross-sectional imaging may be useful for further characterization. Chest X-Ray 01/09/25 17:25 IMPRESSION: 1. No imaging evidence of acute disease of the chest. 2. Generalized mild skeletal degenerative and other chronic/nonacute findings as described above. Chest CT 01/09/25 18:41 IMPRESSION: 1. Right axillary bilobulated mass or masses, likely representing infectious/inflammatory adenitis (inflammatory etiology favored in the appropriate clinical setting and clinical presentation), versus manifestations of neoplastic primary or secondary axillary lymphadenopathy. The more superior lower density lesion may represent a fluctuant fluid collection. Both masses are likely readily amenable to percutaneous liefnr-pmgiilte-lqeepm sampling if clinically warranted. 2. Right axillary generalized shotty lymphadenopathy and right subclavicular limited lymphadenopathy. 3. Generalized hepatic steatosis. 4. No generalized lymphadenopathy or other extranodal masses appreciated within the field of view. 5. Old granulomatous disease. 6. Generalized mild skeletal degenerative and other chronic/nonacute findings as described above. Laboratory Results WBC 10.79 10^3/uL (3.29-11.43) 01/09/25 16:24 RBC 4.83 10^6/uL (3.85-5.65) 01/09/25 16:24 Hgb 14.40 g/dL (11.27-16.99) 01/09/25 16:24 Hct 42.2 % (37-53) 01/09/25 16:24 MCV 87.4 fl (82-101) 01/09/25 16:24 MCH 29.8 pg (27-33) 01/09/25 16:24 MCHC 34.1 g/dL (30-55) 01/09/25 16:24 RDW 12.8 % (12.1-15.1) 01/09/25 16:24 Plt Count 342 10^3/cmm (157-399) 01/09/25 16:24 MPV 10.4 fL (7.4-10.4) 01/09/25 16:24 Neut % (Auto) 68.9 % 01/09/25 16:24 Lymph % (Auto) 21.5 % 01/09/25 16:24 [place] % (Auto) 7.1 % 01/09/25 16:24 Eos % (Auto) 1.5 % 01/09/25 16:24 Baso % (Auto) 0.6 % 01/09/25 16:24 Neut # (Auto) 7.44 10^3/uL (1.8-7.7) 01/09/25 16:24 Lymph # (Auto) 2.3 10^3/uL (0.8-4.8) 01/09/25 16:24 [place] # (Auto) 0.8 10^3/uL (0.2-0.9) 01/09/25 16:24 Eos # (Auto) 0.2 10^3/uL (0.0-0.8) 01/09/25 16:24 Baso # (Auto) 0.1 10^3/uL (0.0-0.1) 01/09/25 16:24 Nucleated RBC % (auto) 0 % 01/09/25 16:24 Nucleated RBCs # 0.0 /100WBC 01/09/25 16:24 ESR 32 mm/hr (0-10) H 01/09/25 16:24 Sodium 135 mmol/L (136-145) L 01/09/25 16:24 Potassium 3.6 mmol/L (3.5-5.1) 01/09/25 16:24 Chloride 99 mmol/L (98-107) 01/09/25 16:24 Carbon Dioxide 23 mmol/L (22-29) 01/09/25 16:24 Anion Gap 16.6 (5-19) 01/09/25 16:24 BUN 8 mg/dL (6-20) 01/09/25 16:24 Creatinine 0.8 mg/dL (0.7-1.2) 01/09/25 16:24 GFR Calculation 113.5 mL/min (90-130) 01/09/25 16:24 Glucose 173 mg/dL (65-115) H 01/09/25 16:24 Calculated Osmolality 282 mOsm/kg (285-295) L 01/09/25 16:24 Calcium 9.5 mg/dL (8.5-10.5) 01/09/25 16:24 Total Bilirubin 0.5 mg/dL (0.15-1.2) 01/09/25 16:24 AST 14 U/L (0-40) 01/09/25 16:24 ALT 16 U/L (0-41) 01/09/25 16:24 Alkaline Phosphatase 102 U/L (40-130) 01/09/25 16:24 C-Reactive Protein 18.6 mg/L (0.0-4.9) H 01/09/25 16:24 Total Protein 7.8 g/dL (6.6-8.7) 01/09/25 16:24 Albumin 4.2 g/dL (3.5-5.2) 01/09/25 16:24 Globulin 3.6 g/dL (1.3-4.6) 01/09/25 16:24 All radiology interpretation(s) finalized by discharge Discharge Plan Discharge Patient Disposition: Home Clinical Impression: Mass of right axilla Condition: Stable Prescriptions: New hydrocodone-acetaminophen 5-325 mg tablet 1 tab PO Q6H PRN (Reason: pain) Qty: 14 0RF doxycycline monohydrate 100 mg capsule 100 mg PO Q12H 10 Days Qty: 20 0RF amoxicillin-pot clavulanate 875-125 mg tablet 1 tab PO BID Qty: 14 0RF No Action rizatriptan 10 mg tablet See Rx Instructions .ROUTE .COMPLEX Rx Instructions: TAKE 1 TABLET BY MOUTH EVERY 2 HOURS NEEDED FOR MIGRAINE. MAY REPEAT IN 2 HOURS. MAX 30 MG DOSE IN 24 HOURS albuterol sulfate [Ventolin HFA] 90 mcg/actuation HFA aerosol inhaler 2 puff INHALATION Q6H PRN (Reason: Shortness Of Breath) topiramate 50 mg tablet 100 mg PO BID levetiracetam 1,000 mg tablet 1,500 mg PO BID prazosin 1 mg Capsule 2 mg PO BEDTIME 30 Days Qty: 60 1RF carbamazepine 200 mg Tablet 200 mg PO BID Qty: 60 1RF sertraline 100 mg tablet 100 mg PO DAILY Qty: 30 1RF Discharge Orders: Discharge ED (Routine); Ordered 01/09/25 Ordered By: Nellie Moser Referrals: Jean Carlos Yusuf [Primary Care Provider, Family Practice] Patient Instructions: Opioid Safety, Pain Management, Patient Portal & Cece Instructions Activity Restrictions/Additional Instructions: Discontinue your current antibiotics as I am starting you on new ones. As we discussed, case management should reach out to you early this week to help set you up with your follow-up appointment with general surgery for further evaluation and possible biopsy of the mass to your right axillary region. You may use the pain medications as needed sparingly for significant discomfort. You may return to the emergency department for worsening pain, swelling, fevers, or any other concerns you may have. Stand Alone Forms: Work/School Release Print Language: Citizen Of [place] Coding Level of Care Code ED [employer] for [employer] Fwd Documented by User: TACHO Navarro 01/09/25 20:05 HPI - Extremity Problem 2 General: Chief complaint: Extremity Injury, Upper Stated complaint: right shoulder pain has a big knot Time Seen by Provider: 01/09/25 15:56 Related Data Home Medications ?Medication ?Instructions ?Recorded ?Confirmed albuterol sulfate 90 mcg/actuation 2 puff inhalation Q 6H PRN 09/29/22 10/17/22 aerosol inhaler (Ventolin HFA) Shortness Of Breath levetiracetam 1,000 mg tablet 1,500 mg PO BID 09/29/22 09/29/22 rizatriptan 10 mg tablet See Rx Instructions .Route . COMPLEX 09/29/22 09/29/22 topiramate 50 mg tablet 100 mg PO BID 09/29/2209/29 Previous Rx's ?Medication ?Instructions ?Recorded carbamazepine 200 mg tablet 200 mg PO BID #60 tabs 11/17 prazosin 1 mg capsule 2 mg (2 x 1 mg) PO BEDTIME 3 0 days 10/02/22 #60 caps sertraline 100 mg tablet 100 mg PO DAILY #30 tabs 11/17 amoxicillin 875 mg-potassium 1 tab PO BID #14 tabs clavulanate 125 mg tablet doxycycline monohydrate 100 mg 100 mg PO Q12H 10 days #20 caps 01/09/25 capsule hydrocodone 5 mg-acetaminophen 325 1 tab PO Q6H PRN pa in #14 tabs 01/09/25 mg tablet Allergies Allergy/AdvReac Type Severity Reaction Status Date / Time latex Allergy Intermediate Rash Verified 09/29/22 16:15 PFSH ED 2 PFSH: Medical History Generalized anxiety disorder Major depressive disorder, recurrent severe without psychotic features Surgical History S/P excision of ganglion cyst History of rotator cuff surgery History of tonsillectomy and adenoidectomy Family History Mother Diabetes Grandfather Diabetes Social History Smoking and tobacco/nicotine status: current every day tobacco/nicotine user cigarettes Packs smoked per day: 1 Years cigarettes smoked: 8 Quit status (tobacco/nicotine): has tried quititng Number of times tried to quit tobacco: 4 Second hand smoke exposure: Yes Alcohol intake: never Substance/Drug Use: never Adopted: No Caregiver/support person: No Lives independently: No Household members: spouse and children Current occupational status: employed Sexually active: Yes Do you think of yourself as: Straight/Heterosexual Current gender identity: Male Course 2 Vital Signs: Vital signs: Vital Signs Temperature 98.1 F 01/09/25 15:42 Pulse Rate 96 01/09/25 15:42 Respiratory Rate 17 01/09/25 15:42 Blood Pressure 149/83 01/09/25 15:42 Pulse Oximetry 99 01/09/25 15:42 Oxygen Delivery Me thod Room Air 01/09/25 15:42 MDM - Extremity (Nontraumatic) Medical Decision Making This patient presenting for swelling under the right arm, and general right shoulder pain that he states has been affecting him at work. On arrival there is tenderness to palpation axillary region with there is palpable masslike structure, but he has no other systemic symptoms to report or concerning exam findings. Specifically does not report any recent cat scratch, no significant weight loss, and no fevers. He has also been taking antibiotics, has been taking Bactrim as prescribed by urgent care. Labs were obtained, no leukocytosis, ESR of 32 and CRP of 19. Soft tissue ultrasound of the right axillary region shows questionable signs of abscess though recommending further imaging. At this time CT chest with contrast is ordered and care of this patient will be transferred to Nellie Moser PA-C. CT scan showing a right axillary bilobulated mass or masses likely representing infectious/inflammatory adenitis versus manifestations of neoplastic primary or secondary axillary lymphadenopathy. Spoke with Dr. Lopez. Plan will be for patient to follow-up with general surgery for probable biopsy. Will adjust his antibiotic coverage to Doxycycline/Augmentin and give him something to help with discomfort. Return ED precautions discussed. ES Medical Records I reviewed the patient's medical records. Lab Data I reviewed the patient's lab results. 01/09/25 16:24 01/09/25 16:24 Radiology Impressions Soft Tissue Ultrasound 01/09/25 16:09 IMPRESSION: 1. Right axillary poorly circumscribed mass or complex cystic fluid collection possibly disorganized fluid of unknown etiology, suspicious for although without specific ultrasound manifestations to confirm abscess. 2. Right axillary prominent lymph nodes with thickening of lymph node mantle characteristic of reactive lymphadenopathy. COMMENTS: Additional cross-sectional imaging may be useful for further characterization. Chest X-Ray 01/09/25 17:25 IMPRESSION: 1. No imaging evidence of acute disease of the chest. 2. Generalized mild skeletal degenerative and other chronic/nonacute findings as described above. Chest CT 01/09/25 18:41 IMPRESSION: 1. Right axillary bilobulated mass or masses, likely representing infectious/inflammatory adenitis (inflammatory etiology favored in the appropriate clinical setting and clinical presentation), versus manifestations of neoplastic primary or secondary axillary lymphadenopathy. The more superior lower density lesion may represent a fluctuant fluid collection. Both masses are likely readily amenable to percutaneous fxnxit-mntnhwag-wttsen sampling if clinically warranted. 2. Right axillary generalized shotty lymphadenopathy and right subclavicular limited lymphadenopathy. 3. Generalized hepatic steatosis. 4. No generalized lymphadenopathy or other extranodal masses appreciated within the field of view. 5. Old granulomatous disease. 6. Generalized mild skeletal degenerative and other chronic/nonacute findings as described above. Laboratory Results WBC 10.79 10^3/uL (3.29-11.43) 01/09/25 16:24 RBC 4.83 10^6/uL (3.85-5.65) 01/09/25 16:24 Hgb 14.40 g/dL (11.27-16.99) 01/09/25 16:24 Hct 42.2 % (37-53) 01/09/25 16:24 MCV 87.4 fl (82-101) 01/09/25 16:24 MCH 29.8 pg (27-33) 01/09/25 16:24 MCHC 34.1 g/dL (30-55) 01/09/25 16:24 RDW 12.8 % (12.1-15.1) 01/09/25 16:24 Plt Count 342 10^3/cmm (157-399) 01/09/25 16:24 MPV 10.4 fL (7.4-10.4) 01/09/25 16:24 Neut % (Auto) 68.9 % 01/09/25 16:24 Lymph % (Auto) 21.5 % 01/09/25 16:24 [place] % (Auto) 7.1 % 01/09/25 16:24 Eos % (Auto) 1.5 % 01/09/25 16:24 Baso % (Auto) 0.6 % 01/09/25 16:24 Neut # (Auto) 7.44 10^3/uL (1.8-7.7) 01/09/25 16:24 Lymph # (Auto) 2.3 10^3/uL (0.8-4.8) 01/09/25 16:24 [place] # (Auto) 0.8 10^3/uL (0.2-0.9) 01/09/25 16:24 Eos # (Auto) 0.2 10^3/uL (0.0-0.8) 01/09/25 16:24 Baso # (Auto) 0.1 10^3/uL (0.0-0.1) 01/09/25 16:24 Nucleated RBC % (auto) 0 % 01/09/25 16:24 Nucleated RBCs # 0.0 /100WBC 01/09/25 16:24 ESR 32 mm/hr (0-10) H 01/09/25 16:24 Sodium 135 mmol/L (136-145) L 01/09/25 16:24 Potassium 3.6 mmol/L (3.5-5.1) 01/09/25 16:24 Chloride 99 mmol/L (98-107) 01/09/25 16:24 Carbon Dioxide 23 mmol/L (22-29) 01/09/25 16:24 Anion Gap 16.6 (5-19) 01/09/25 16:24 BUN 8 mg/dL (6-20) 01/09/25 16:24 Creatinine 0.8 mg/dL (0.7-1.2) 01/09/25 16:24 GFR Calculation 113.5 mL/min (90-130) 01/09/25 16:24 Glucose 173 mg/dL (65-115) H 01/09/25 16:24 Calculated Osmolality 282 mOsm/kg (285-295) L 01/09/25 16:24 Calcium 9.5 mg/dL (8.5-10.5) 01/09/25 16:24 Total Bilirubin 0.5 mg/dL (0.15-1.2) 01/09/25 16:24 AST 14 U/L (0-40) 01/09/25 16:24 ALT 16 U/L (0-41) 01/09/25 16:24 Alkaline Phosphatase 102 U/L (40-130) 01/09/25 16:24 C-Reactive Protein 18.6 mg/L (0.0-4.9) H 01/09/25 16:24 Total Protein 7.8 g/dL (6.6-8.7) 01/09/25 16:24 Albumin 4.2 g/dL (3.5-5.2) 01/09/25 16:24 Globulin 3.6 g/dL (1.3-4.6) 01/09/25 16:24 Discharge Plan Discharge Patient Disposition: Home Clinical Impression: Mass of right axilla Condition: Stable Prescriptions: New hydrocodone-acetaminophen 5-325 mg tablet 1 tab PO Q6H PRN (Reason: pain) Qty: 14 0RF doxycycline monohydrate 100 mg capsule 100 mg PO Q12H 10 Days Qty: 20 0RF amoxicillin-pot clavulanate 875-125 mg tablet 1 tab PO BID Qty: 14 0RF No Action rizatriptan 10 mg tablet See Rx Instructions .ROUTE .COMPLEX Rx Instructions: TAKE 1 TABLET BY MOUTH EVERY 2 HOURS NEEDED FOR MIGRAINE. MAY REPEAT IN 2 HOURS. MAX 30 MG DOSE IN 24 HOURS albuterol sulfate [Ventolin HFA] 90 mcg/actuation HFA aerosol inhaler 2 puff INHALATION Q6H PRN (Reason: Shortness Of Breath) topiramate 50 mg tablet 100 mg PO BID levetiracetam 1,000 mg tablet 1,500 mg PO BID prazosin 1 mg Capsule 2 mg PO BEDTIME 30 Days Qty: 60 1RF carbamazepine 200 mg Tablet 200 mg PO BID Qty: 60 1RF sertraline 100 mg tablet 100 mg PO DAILY Qty: 30 1RF Discharge Orders: Discharge ED (Routine); Ordered 01/09/25 Ordered By: Nellie Moser Referrals: Jean Carlos Yusuf [Primary Care Provider, Family Practice] Patient Instructions: Opioid Safety, Pain Management, Patient Portal & Cece Instructions Activity Restrictions/Additional Instructions: Discontinue your current antibiotics as I am starting you on new ones. As we discussed, case management should reach out to you early this week to help set you up with your follow-up appointment with general surgery for further evaluation and possible biopsy of the mass to your right axillary region. You may use the pain medications as needed sparingly for significant discomfort. You may return to the emergency department for worsening pain, swelling, fevers, or any other concerns you may have. Stand Alone Forms: Work/School Release Print Language: Citizen Of [place] Coding Level of Care Code ED [employer] Chief for [employer] [facility]den
--- NOTE | 2025-01-09 17:25 | XRR_ITS ---
PROCEDURE INFORMATION: Exam: XR Chest Exam date and time: 01/09/2025 5:28 PM Age: 29 years old Clinical indication: Pain; Chest pressure; Additional info: Right shoulder/anterior chest pain/swelling TECHNIQUE: Imaging protocol: Radiologic exam of the chest. Views: 1 view. Total images: 335 COMPARISON: 1. CT abdomen pelvis w con* [id number] 02/21/2022 9:11 PM 2. CR XR KUB [id number] 02/18/2022 7:24 PM 3. CR XR cervical spine 3V* [id number] 08/30/2021 10:[address] abdomen pelvis w con* [id number] 02/10/2021 10:57 PM FINDINGS: Lungs: Unremarkable. No consolidation. Lungs are well-aerated without focal acute pathologic pulmonary parenchymal process. Pleural spaces: No significant pleural effusion. No pneumothorax. Heart/Mediastinum: The heart is not enlarged. Bones/joints: Acromioclavicular joint mild chronic degenerative arthrosis. Mild generalized degenerative changes of the vertebral column characterized primarily by multilevel osteophyte formation, and degenerative facet arthrosis commensurate with patient's age. No acute osseous abnormality. XR/XR chest 1V portable [id number] IMPRESSION: 1. No imaging evidence of acute disease of the chest. 2. Generalized mild skeletal degenerative and other chronic/nonacute findings as described above.
--- NOTE | 2025-01-09 18:41 | CTR_ITS ---
PROCEDURE INFORMATION: Exam: CT Chest With Contrast; Diagnostic Exam date and time: 01/09/2025 7:00 PM Age: 29 years old Clinical indication: C/O RT shoulder pain with palpable axillary mass. Non specific fluid collection/mass noted on US. ; Additional info: Right chest/shoulder mass TECHNIQUE: Imaging protocol: Diagnostic computed tomography of the chest with contrast. Total images: 323 Radiation optimization: All CT scans at this facility use at least one of these dose optimization techniques: automated exposure control; mA and/or kV adjustment per patient size (includes targeted exams where dose is matched to clinical indication); or iterative reconstruction. Contrast material: OMNI 350; Contrast volume: 100 ml; Contrast route: INTRAVENOUS (IV); COMPARISON: 1. CR (CHEST, ) 01/09/2025 5:[address] abdomen pelvis w con* [id number] 02/21/2022 9:11 PM RADIATION DOSE METRICS: Total DLP (mGy-cm): 815.91 FINDINGS: Lungs: Unremarkable. No consolidation. No masses. Lungs are well-aerated without focal acute pathologic pulmonary parenchymal process. Pleural spaces: No significant pleural effusion. No pneumothorax. Heart: The heart is not enlarged. No pericardial fluid collection or pathologic thickening. Lymph nodes: Right axillary generalized shotty lymphadenopathy and right subclavicular limited lymphadenopathy. Mediastinal/hilum calcified lymph nodes characteristic remote prior granulomatous organism exposure. No lymphadenopathy. Vasculature: Unremarkable. No aortic aneurysm. Liver: Liver of low-density. Gallbladder and biliary ducts: Gallbladder is contracted. No extrahepatic biliary dilatation. Spleen: Incidental splenic granulomata are noted. Adrenal glands: Adrenal glands are normal. Kidneys: Kidneys are normal insofar as visualized. No evidence of obstructing urinary tract calculus, hydroureteronephrosis or perinephric edema. Stomach: Stomach is distended with fluid and semi-solid debris without pathologic gastric wall thickening or perigastric induration or other manifestations to suggest acute gastritis. Retroperitoneal space: Pancreas of normal thickness and contour demonstrating no pathologic pancreatic duct dilatation insofar as partially visualized allowing for limited retroperitoneal sonographic penetration due to body habitus and bowel gas. Bones/joints: No acute osseous abnormality. Acromioclavicular joint mild chronic degenerative arthrosis. Mild generalized degenerative changes of the vertebral column characterized primarily by multilevel osteophyte formation, and degenerative facet arthrosis commensurate with patient's age. Soft tissues: Right axillary bilobulated mass, the more inferior mass appears solid measuring up to 4.5 cm diameter; abutting the more superior right axillary lower density mass measuring up to 5.2 cm diameter. Other findings: Otherwise no acute findings in the upper abdomen. CT/CT chest w con* [id number] IMPRESSION: 1. Right axillary bilobulated mass or masses, likely representing infectious/inflammatory adenitis (inflammatory etiology favored in the appropriate clinical setting and clinical presentation), versus manifestations of neoplastic primary or secondary axillary lymphadenopathy. The more superior lower density lesion may represent a fluctuant fluid collection. Both masses are likely readily amenable to percutaneous lhjrve-[id number] sampling if clinically warranted. 2. Right axillary generalized shotty lymphadenopathy and right subclavicular limited lymphadenopathy. 3. Generalized hepatic steatosis. 4. No generalized lymphadenopathy or other extranodal masses appreciated within the field of view. 5. Old granulomatous disease. 6. Generalized mild skeletal degenerative and other chronic/nonacute findings as described above.
[2025-01-09] MEDS: iohexol 350 mg/mL 500 mL Btl (per mL) IV (19:08)
[2025-01-09] MEDS: HYDROcodone-acetaminophen 5-325 mg Tablet 2 TAB PO (20:52)
--- NOTE | 2025-01-10 08:30 | DCPLANNER ---
messaged gen surg for er f/u
== END 2025-01-09 20:53 | disposition home or self-care (01) ==
PROVIDERS: Emergency Provider Physician Assistant; PCP Family Medicine
DX: R22.2 Localized swelling, mass and lump, trunk (principal); F17.210 Nicotine dependence, cigarettes, uncomplicated
CPT/HCPCS: 36415; 71045; 71260; 76882; 80053; 85025; 85651; 86140; 99285; J9999

== ENCOUNTER 2025-02-09 12:07 | Outpatient (CLI) | payer BC, MEDICAID, SELFPAY ==
--- NOTE | 2025-02-09 13:15 | US_ITS ---
WS: [id number] ULTRASOUND-GUIDED RIGHT axillary biopsy and drainage CLINICAL INFORMATION: right axillary lymphadenopathy FINDINGS: The procedure including risks, benefits, and complications were discussed with the patient who agreed to proceed. Using sterile technique patient was prepped and draped in the usual sterile fashion. After 1% lidocaine utilizing real-time ultrasound guidance 1 14-gauge core was obtained of the RIGHT axillary lesion. Subsequently the lesion was aspirated with approximately 60 cc of bloody purulent fluid return. No immediate complications. Patient reports he is currently out of antibiotics but has a follow-up appointment with Dr. Rowe to discuss the results. Message was LEFT with Dr. Rowe's office Cytology and cultures with antibiotic susceptibility ordered. US/US biopsy [id number] IMPRESSION: 1. Uncomplicated ultrasound-guided RIGHT axillary biopsy and drainage. 2. Approximately 60 cc of bloody purulent fluid was aspirated and sent for [place]. 3. No immediate complications.
== END 2025-02-09 12:08 | disposition home or self-care (01) ==
LOC: RAD 12:07
PROVIDERS: PCP Family Medicine; Visit Provider Student in an Organized Health Care Education/Training Program
DX: R59.1 Generalized enlarged lymph nodes (principal); L02.91 Cutaneous abscess, unspecified; M79.89 Other specified soft tissue disorders
CPT/HCPCS: 76942; 88173; 88305